=== PATIENT | male | born 1955 ===

== ENCOUNTER 2016-03-10 11:15 | Inpatient (IN) | payer BC ==
[2016-03-10] MEDS ORDERED: SODIUM CHLORIDE 1,000 ML IV STA (12:56)
[2016-03-10 13:11] LABS: BASOPHIL 0.4 % (0-2.0); EOSINOPHIL 0.1 % (0-4.5); MEAN CELL VOLUME 90.9 fl (80-96); MEAN PLT VOLUME 8.9 fl (7.5-11.1); NEUTROPHILS 77.8 % (42.8-82.8); PLATELET COUNT 144 K/MM3 (134-434); RDW 13.8 % (11.9-15.9); WHITE BLOOD COUNT 13.4 K/mm3 (4.0-10.0)
[2016-03-10 13:24] LABS: INR 1.21 (0.82-1.09); PROTHROMBIN TIME (PATIENT) 13.4 SEC (9.98-11.88)
[2016-03-10 13:26] LABS: ACTIVATED PTT 31.3 SECONDS (26.9-34.4)
[2016-03-10 13:36] LABS: ALBUMIN 4.1 g/dl (3.4-5.0); ANION GAP 12 (8-16); BILIRUBIN,TOTAL 0.6 mg/dL (0.2-1.0); CALCIUM 9.2 mg/dL (8.5-10.1); CO2 23 mmol/L (21-32); CREATININE 1.2 mg/dL (0.7-1.3); GLUCOSE,RANDOM 235 mg/dL (74-106); SGOT/AST 12 U/L (15-37); SGPT/ALT 24 U/L (12-78); TOT PROT 7.8 g/dl (6.4-8.2)
[2016-03-10 13:39] LABS: ALK PHOS 54 U/L (45-117); TROPONIN I < 0.02 ng/ml (0.00-0.05)
--- NOTE | 2016-03-10 13:54 | PDOC ---
History of Present Illness - General Chief Complaint: Redness To Affected Area Stated Complaint: RT SIDE KNEE PAIN Time Seen by Provider: 03/10/16 12:19 History Source: Patient Exam Limitations: No Limitations - History of Present Illness Initial Comments: 03/10/16 13:31 60-year-old male presents to the ED with complaints of worsening right knee pain associated with redness and swelling and drainage since yesterday. 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 Patient states then area approximately one week later developed a scab but no redness discomfort or drainage. Patient states with time area became tender to touch only and 2 days ago had picked the scab off. patient states is also diabetic and states his last BGM was 145. Patient denies radiation of pain, fever, chills, previous injury to the affected area, or previous surgery to the affected area. Timing/Duration: constant, getting worse Severity: moderate Associated Symptoms: reports: denies symptoms Past History - Past Medical History Allergies/Adverse Reactions: Allergies Allergy/AdvReac Type Severity Reaction Status Date / Time No Known Allergies Allergy Verified 03/10/16 11:19 Home Medications: Ambulatory Orders Canagliflozin [Invokana] 100 mg PO DAILY 03/10/16 Lisinopril [Prinivil] 20 mg PO DAILY 03/10/16 Metoprolol Succinate [Toprol Xl] 100 mg PO DAILY 03/10/16 Ropinirole HCl 3 mg PO DAILY 03/10/16 Rosuvastatin Calcium [Crestor] 40 mg PO DAILY 03/10/16 Sitagliptin Phos/Metformin HCl [Janumet Xr 100-1,000 mg Tablet] 1 tab PO DAILY 03/10/16 Diabetes: Yes HTN: Yes Hypercholesterolemia: Yes - Surgical History Cardiac Surgery: Yes - Psycho/Social/Smoking Cessation Hx Suicidal Ideation: No Smoking History: Never smoked Have you smoked in the past 12 months: No Information on smoking cessation initiated: No Hx Alcohol Use: No Drug/Substance Use Hx: No Patient Lives Alone: No Lives with/in: spouse/SO Review of Systems - Review of Systems Able to Perform ROS?: Yes Constitutional: No: Symptoms Reported HEENTM: No: Symptoms Reported Respiratory: No: Symptoms reported Cardiac (ROS): No: Symptoms Reported ABD/GI: No: Symptoms Reported : No: Symptoms Reported Musculoskeletal: Yes: Joint Pain (right knee), Joint Swelling (right knee) Integumentary: Yes: Erythema (right knee) Neurological: No: Symptoms reported Endocrine: No: Symptoms Reported Hematologic/Lymphatic: No: Symptoms Reported *Physical Exam - Vital Signs Last Vital Signs Temp Pulse Resp BP Pulse Ox 98.1 F 98 H 19 124/68 99 03/10/16 11:19 03/10/16 11:19 03/10/16 11:19 03/10/16 11:19 03/10/16 11:19 - Physical Exam General Appearance: Yes: Nourished, Appropriately Dressed. No: Apparent Distress HEENT: negative: Pale Conjunctivae Neck: positive: Supple Respiratory/Chest: positive: Lungs Clear, Normal Breath Sounds. negative: Respiratory Distress, Accessory Muscle Use Cardiovascular: positive: Regular Rhythm, Regular Rate. negative: Murmur Gastrointestinal/Abdominal: positive: Soft. negative: Tenderness Extremity: positive: Normal Capillary Refill, Normal Range of Motion, Tender ( distal aspect of right patella. ) Integumentary: positive: Erythema (diffuse erythema with increased warmth over right patella. No palpable fluctulence but with moderate prsssure able to express nonodorous purulent drainage from pinhead sized opening over the right patella) Neurologic: positive: Motor Strength 5/5 (ambulatory) Heart Score/ECG Review - ECG Intrepretation Rhythm: Regular Rhythm (rate 90, no acute findings.) ED Treatment Course - LABORATORY CBC & Chemistry Diagram: 03/12/16 05:35 03/12/16 05:35 - ADDITIONAL ORDERS Additional order review: Laboratory Results 03/10/16 13:00 Sodium 138 Potassium 4.3 Chloride 103 Carbon Dioxide 23 Anion Gap 12 BUN 23 H Creatinine 1.2 Creat Clearance w eGFR > 60 Random Glucose 235 H Calcium 9.2 Total Bilirubin 0.6 AST 12 L ALT 24 Alkaline Phosphatase 54 Creatine Kinase 165 Troponin I < 0.02 Total Protein 7.8 Albumin 4.1 03/10/16 13:00 RBC 5.61 H MCV 90.9 MCHC 33.0 RDW 13.8 MPV 8.9 Neutrophils % 77.8 Lymphocytes % 10.7 Monocytes % 11.0 H Eosinophils % 0.1 Basophils % 0.4 - RADIOLOGY Radiology Studies Ordered: Category Date Time Status LOWER EXTREMITY CT W/O CONTR [CT] Stat CT Scan 03/10/16 12:58 Ordered Medical Decision Making - Medical Decision Making 03/10/16 13:57 Patient history of diabetes presents with worsening redness swelling and drainage from the right knee patient denies history of arthritis and states has not seen his PCP for the above. Patient concerning for septic joint versus cellulitis versus sepsis. Septic workup initiated including a CT of the extremity and will culture was obtained. Will vancomycin and Zosyn. Erythematous area outline with permanent marker pen. 03/10/16 14:30 Laboratory Tests 03/10/16 03/10/16 03/10/16 13:00 13:00 13:00 WBC 13.4 H Hgb 16.8 Hct 51.0 H Neutrophils % 77.8 INR 1.21 H PTT (Actin FS) 31.3 Sodium 138 Potassium 4.3 Chloride 103 Carbon Dioxide 23 Anion Gap 12 BUN 23 H Creatinine 1.2 Creat Clearance w eGFR > 60 Random Glucose 235 H Lactic Acid AST 12 L ALT 24 Troponin I < 0.02 Blood Type Antibody Screen 03/10/16 03/10/16 13:00 13:00 WBC Hgb Hct Neutrophils % INR PTT (Actin FS) Sodium Potassium Chloride Carbon Dioxide Anion Gap BUN Creatinine Creat Clearance w eGFR Random Glucose Lactic Acid 2.072 H* AST ALT Troponin I Blood Type A NEGATIVE Antibody Screen Negative Discussed with hospitalist and accepted to [facility]. Will consult ortho once CT results are reviewed. 03/10/16 14:58 CT shows significant soft tissue swelling around the knee joint and edema and fluid mainly in the prepatellar region measuring 2 cm in thickness. Superimposed infection cannot be excluded or evaluated on this exam. There is no gross joint effusion fracture, bone destruction or periosteal elevation identified. Consultation placed to orthopedist continuous still operator Dr. De Los Santos. *DC/Admit/Observation/Transfer Diagnosis at time of Disposition: Cellulitis of knee, right Sepsis Qualifiers: Sepsis type: sepsis due to unspecified organism Qualified Code(s): A41.9 - Sepsis, unspecified organism - Discharge Dispostion Admit: Yes
[2016-03-10] MEDS ORDERED: PIPERACILLIN/TAZOB 3.375 GM/50 ML PRE-DOCKED IV ONE (13:59)
[2016-03-10] MEDS ORDERED: VANCOMYCIN 1,000 MG in DEXTROSE 5%-WATER - 250 ML IVPB ONE (13:59)
[2016-03-10] MEDS ORDERED: PIPERACILLIN/TAZOB 3.375 GM 50 ML IVPB ONE (14:15)
[2016-03-10] MEDS ORDERED: VANCOMYCIN 1 GRAM (PRE-DOCKED) 250 ML IVPB ONE (14:35)
[2016-03-10] MEDS ORDERED: oxyCODONE HCL 5 MG TABLET PO PRN (14:43)
[2016-03-10] MEDS ORDERED: ACETAMINOPHEN 325 MG TABLET (FP) PO PRN (14:43)
[2016-03-10] MEDS ORDERED: ONDANSETRON 4 MG/2 ML VIAL IVPB PRN (14:43)
--- NOTE | 2016-03-10 14:45 | HP ---
CHIEF COMPLAINT: Knee pain PCP: Dr. Beatrice Valera HISTORY OF PRESENT ILLNESS: this is a 60 year old male with a history of NIDDM, HTN, and restless leg syndrome who presents complaining of right knee pain, redness, warmth, and swelling since last night. He had a scab in that location for about two months, and symptoms started after he picked the scab off yesterday. He denies fevers/chills or any other systemic symptoms. 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 Smoking: None Alcohol: Occasional Drugs: None Family History: Non-contributory to this admission Allergies No Known Allergies Allergy (Verified 03/10/16 11:19) HOME MEDICATIONS: Medication Instructions Recorded Canagliflozin [Invokana] 100 mg PO DAILY 03/10/16 Lisinopril [Prinivil] 20 mg PO DAILY 03/10/16 Metoprolol Succinate [Toprol Xl] 100 mg PO DAILY 03/10/16 Ropinirole HCl 3 mg PO DAILY 03/10/16 Rosuvastatin Calcium [Crestor] 40 mg PO DAILY 03/10/16 Sitagliptin Phos/Metformin HCl 1 tab PO DAILY 03/10/16 [Janumet Xr 100-1,000 mg Tablet] REVIEW OF SYSTEMS CONSTITUTIONAL: Absent: fever, chills, diaphoresis, generalized weakness, malaise, loss of appetite, weight change HEENT: Absent: rhinorrhea, nasal congestion, throat pain, throat swelling, difficulty swallowing, mouth swelling, ear pain, eye pain, visual changes CARDIOVASCULAR: Absent: chest pain, syncope, palpitations, irregular heart rate, lightheadedness , peripheral edema RESPIRATORY: Absent: cough, shortness of breath, dyspnea with exertion, orthopnea, wheezing, stridor, hemoptysis GASTROINTESTINAL: Absent: abdominal pain, abdominal distension, nausea, vomiting, diarrhea, constipation, melena, hematochezia GENITOURINARY: Absent: dysuria, frequency, urgency, hesitancy, hematuria, flank pain, genital pain MUSCULOSKELETAL: Right knee pain SKIN: Right knee redness, pain, warmth, drainage HEMATOLOGIC/IMMUNOLOGIC: Absent: easy bleeding, easy bruising, lymphadenopathy, frequent infections ENDOCRINE: Absent: unexplained weight gain, unexplained weight loss, heat intolerance, cold intolerance NEUROLOGIC: Absent: headache, focal weakness or paresthesias, dizziness, unsteady gait, seizure, mental status changes, bladder or bowel incontinence PSYCHIATRIC: Absent: anxiety, depression, suicidal or homicidal ideation, hallucinations. PHYSICAL EXAMINATION Vital Signs - 24 hr 03/10/16 11:19 Temperature 98.1 F Pulse Rate 98 H Respiratory 19 Rate Blood Pressure 124/68 O2 Sat by Pulse 99 Oximetry (%) GENERAL: Awake, alert, and fully oriented, in no acute distress. HEAD: Normal with no signs of trauma. EYES: Pupils equal, round and reactive to light, extraocular movements intact, sclera anicteric, conjunctiva clear. No lid lag. EARS, NOSE, THROAT: Ears normal, nares patent, oropharynx clear without exudates. Moist mucous membranes. NECK: Normal range of motion, supple without lymphadenopathy, JVD, or masses. LUNGS: Breath sounds equal, clear to auscultation bilaterally. No wheezes, and no crackles. No accessory muscle use. HEART: Regular rate and rhythm, normal S1 and S2 without murmur, rub or gallop. ABDOMEN: Soft, nontender, not distended, normoactive bowel sounds, no guarding, no rebound, no masses. No hepatomegaly or splenomegaly. MUSCULOSKELETAL: Normal range of motion at all joints. No bony deformities or tenderness. No CVA tenderness. UPPER EXTREMITIES: 2+ pulses, warm, well-perfused. No cyanosis. No clubbing. Cap refill <2 seconds. No peripheral edema. LOWER EXTREMITIES: 2+ pulses, warm, well-perfused. No calf tenderness. No peripheral edema. Right knee erythematous, edematous, <1cm open ulceration draining pus. Full range of motion of knee joint. NEUROLOGICAL: Cranial nerves II-XII intact. Normal speech. PSYCHIATRIC: Cooperative. Good eye contact. Appropriate mood and affect. SKIN: Warm, dry, normal turgor, no rashes or lesions noted. Laboratory Results - last 24 hr 03/10/16 03/10/16 03/10/16 13:00 13:00 13:00 WBC 13.4 H RBC 5.61 H Hgb 16.8 Hct 51.0 H MCV 90.9 MCHC 33.0 RDW 13.8 Plt Count 144 MPV 8.9 Neutrophils % 77.8 Lymphocytes % 10.7 Monocytes % 11.0 H Eosinophils % 0.1 Basophils % 0.4 INR 1.21 H PTT (Actin FS) 31.3 Sodium 138 Potassium 4.3 Chloride 103 Carbon Dioxide 23 Anion Gap 12 BUN 23 H Creatinine 1.2 Creat Clearance w eGFR > 60 Random Glucose 235 H Lactic Acid Calcium 9.2 Total Bilirubin 0.6 AST 12 L ALT 24 Alkaline Phosphatase 54 Creatine Kinase 165 Creatine Kinase Index 1.2 CK-MB (CK-2) 2.083 Troponin I < 0.02 Total Protein 7.8 Albumin 4.1 Blood Type Antibody Screen 03/10/16 03/10/16 13:00 13:00 WBC RBC Hgb Hct MCV MCHC RDW Plt Count MPV Neutrophils % Lymphocytes % Monocytes % Eosinophils % Basophils % INR PTT (Actin FS) Sodium Potassium Chloride Carbon Dioxide Anion Gap BUN Creatinine Creat Clearance w eGFR Random Glucose Lactic Acid 2.072 H* Calcium Total Bilirubin AST ALT Alkaline Phosphatase Creatine Kinase Creatine Kinase Index CK-MB (CK-2) Troponin I Total Protein Albumin Blood Type A NEGATIVE Antibody Screen Negative ASSESSMENT/PLAN: 60 year old diabetic male with cellulitis of the knee and sepsis. Problem List - Problem (1) Cellulitis of knee, right Assessment/Plan: -Send ESR/CRP -Vancomycin 1.25g bid/Zosyn 3.75g q8h; ID consulted for approval -Oxycodone/Tylenol as needed for pain -Orthopedic consultation for r/o septic arthritis Code(s): L03.115 - CELLULITIS OF RIGHT LOWER LIMB (2) Sepsis Assessment/Plan: -Antibiotics as above -IV fluids -Follow fever, WBC curve -Follow up blood cultures, wound culture Code(s): A41.9 - SEPSIS, UNSPECIFIED ORGANISM Qualifiers: Sepsis type: sepsis due to unspecified organism Qualified Code(s): A41.9 - Sepsis, unspecified organism (3) Diabetes Assessment/Plan: -Hold oral hypoglycemics while inpatient -ISS -FSACHS -Diabetic diet Code(s): E11.9 - TYPE 2 DIABETES MELLITUS WITHOUT COMPLICATIONS (4) Hypertension Assessment/Plan: -At goal -Continue home Metoprolol/Lisinopril Code(s): I10 - ESSENTIAL (PRIMARY) HYPERTENSION (5) Restless leg Assessment/Plan: -Continue home Ropipranole Code(s): G25.81 - RESTLESS LEGS SYNDROME (6) DVT prophylaxis Assessment/Plan: -Lovenox 40mg sq daily -PT Code(s): [id number] - Visit type - Emergency Visit Emergency Visit: Yes ED Registration Date: 03/10/16 Care time: The patient presented to the Emergency Department on the above date and was hospitalized for further evaluation of their emergent condition. - New Patient This patient is new to me today: Yes Date on this admission: 03/10/16 - Critical Care Critical Care patient: No
[2016-03-10 14:59] LABS: URINE APPEARANCE CLEAR; URINE BILIRUBIN NEGATIVE (NEGATIVE); URINE BLOOD NEGATIVE (NEGATIVE); URINE COLOR STRAW; URINE GLUCOSE (UA) 3+ (NEGATIVE); URINE KETONE NEGATIVE (NEGATIVE); URINE LEUK ESTERASE NEGATIVE (NEGATIVE); URINE NITRITE NEGATIVE (NEGATIVE); URINE PROTEIN NEGATIVE (NEGATIVE); URINE UROBILINOGEN NEGATIVE E.U./dl (0.2-1.0)
[2016-03-10 16:03] LABS: VENOUS PH 7.4 (7.31-7.41)
[2016-03-10 16:04] LABS: VENOUS BLOOD GAS HCO3 20.8 meq/L (22-29)
[2016-03-10] MEDS ORDERED: HEMOQUE TEST 1 EACH EACH ONE (16:54)
[2016-03-10] MEDS: INSULIN SLIDING SCALE (NOVOLOG) 1 VIAL SQ SCH ×2 (17:00→21:09)
[2016-03-10 20:05] VITALS: BMI 30.7
[2016-03-10] MEDS ORDERED: PNEUMOC 13-VAL CONJ-DIP CRM/PF 0.5 ML DISP.SYRIN IM ONE (20:06)
[2016-03-10] MEDS ORDERED: INSULIN (NOVOLOG) ASPART 100 UNITS/ML 10ML VIAL ONE (20:21)
[2016-03-10] MEDS: PIPERACILLIN/TAZOB 3.375 GM/50 ML PRE-DOCKED IVPB SCH (20:38)
[2016-03-10] MEDS ORDERED: PNEUMOCOCCAL 23 VACCINE 0.5 ML VIAL IM ONE (20:45)
[2016-03-10] MEDS: DOCUSATE SODIUM 100 MG CAPSULE (FP) PO SCH (21:09)
[2016-03-10] MEDS: rOPINIRole HCL 3 MG TABLET PO SCH (21:38)
[2016-03-10] MEDS ORDERED: VANCOMYCIN 1,250 MG in DEXTROSE 5%-WATER - 250 ML IVPB SCH (22:00)
--- NOTE | 2016-03-10 23:55 | EKG ---
Test Reason : Blood Pressure : / mmHG Vent. Rate : 090 BPM Atrial Rate : 090 BPM P-R Int : 188 ms QRS Dur : 096 ms QT Int : 362 ms P-R-T Axes : 046 -05 036 degrees QTc Int : 442 ms NORMAL SINUS RHYTHM POSSIBLE LATERAL INFARCT , AGE UNDETERMINED INFERIOR INFARCT , AGE UNDETERMINED ABNORMAL ECG NO PREVIOUS ECGS AVAILABLE Confirmed by SUSANA ROMERO MD ([id number]) on 03/10/2016 11:54:58 PM Referred By: Confirmed By:SUSANA ROMERO MD
[2016-03-11] MEDS: PIPERACILLIN/TAZOB 3.375 GM/50 ML PRE-DOCKED IVPB SCH (01:16)
[2016-03-11] MEDS ORDERED: VANCOMYCIN 1,250 MG in DEXTROSE 5%-WATER - 250 ML IVPB ONE (02:00)
[2016-03-11] MEDS: DOCUSATE SODIUM 100 MG CAPSULE (FP) PO SCH ×3 (05:18→21:19)
[2016-03-11] MEDS: INSULIN SLIDING SCALE (NOVOLOG) 1 VIAL SQ SCH ×4 (06:00→21:20)
[2016-03-11 08:06] LABS: BASOPHIL 0.2 % (0-2.0); EOSINOPHIL 0.4 % (0-4.5); MCH 30.2 pg (25.7-33.7); MCHC 33.1 g/dl (32.0-35.9); MEAN CELL VOLUME 91.2 fl (80-96); NEUTROPHILS 73.6 % (42.8-82.8); PLATELET COUNT 129 K/MM3 (134-434); RDW 13.9 % (11.9-15.9); WHITE BLOOD COUNT 11.2 K/mm3 (4.0-10.0)
--- NOTE | 2016-03-11 08:25 | CONSULT ---
Consult Reason for Consultation:: Right knee cellulitis r/o septic joint - History of Present Illness Chief Complaint: 60y/o male c/o pain and swelling of the right knee for approxamently 2 days. History of Present Illness: 60y/o male c/o right knee pain and swelling for approximately 2 days. He had a scab on the knee which had been there for many weeks and he peeled it off 2 days ago. He began to have a rapid increase in pain and swelling and went to the ER and was admitted for cellulitis. He has been on IV ABX. The knee is feeling much better today. He is able to walk on the knee with minimal discomfort. No other associated, aggravating or relieving factors. - History Source History Provided By: Patient, Family Member, Medical Record Limitations to Obtaining History: No Limitations - Alcohol/Substance Use Hx Alcohol Use: Yes (occasions) - Smoking History Smoking history: Never smoked Have you smoked in the past 12 months: No Home Medications - Allergies Allergies/Adverse Reactions: Allergies Allergy/AdvReac Type Severity Reaction Status Date / Time No Known Allergies Allergy Verified 03/10/16 11:19 - Home Medications Home Medications: Ambulatory Orders Canagliflozin [Invokana] 100 mg PO DAILY 03/10/16 Lisinopril [Prinivil] 20 mg PO DAILY 03/10/16 Metoprolol Succinate [Toprol Xl] 100 mg PO DAILY 03/10/16 Ropinirole HCl 3 mg PO DAILY 03/10/16 Rosuvastatin Calcium [Crestor] 40 mg PO DAILY 03/10/16 Sitagliptin Phos/Metformin HCl [Janumet Xr 100-1,000 mg Tablet] 1 tab PO DAILY 03/10/16 Review of Systems - Review of Systems Constitutional: reports: No Symptoms Eyes: reports: No Symptoms HENT: reports: No Symptoms, Throat Pain Cardiovascular: reports: No Symptoms Respiratory: reports: No Symptoms Gastrointestinal: reports: No Symptoms Genitourinary: reports: No Symptoms Breasts: reports: No Symptoms Reported Musculoskeletal: reports: No Symptoms Integumentary: reports: Wound Neurological: reports: No Symptoms Endocrine: reports: No Symptoms Hematology/Lymphatic: reports: No Symptoms Psychiatric: reports: No Symptoms Physical Exam Vital Signs: Vital Signs Temperature 98.5 F 03/11/16 05:44 Pulse Rate 98 H 03/11/16 05:44 Respiratory Rate 18 03/11/16 05:44 Blood Pressure 123/75 03/11/16 05:44 O2 Sat by Pulse Oximetry (%) 95 03/10/16 18:01 Constitutional: Yes: Well Nourished, No Distress, Calm HENT: Yes: Atraumatic, Normocephalic Musculoskeletal: Yes: Other (Right knee: There is a 1.5x 1.5cm superfical abrasive wound on the anterior aspect of the patella. There is mild serous drainage from this wound. There is mild surrounding erythema which seems to be receding from the skin marker line. Mild tenderness anteriorly in this area. No other areas of tenderness. No tenderness over the joint space. ROM 0-120 degrees without pain. Calf soft, NT, neg faith's sing. NVID.) Labs: CBC, BMP 03/11/16 06:05 Assessment/Plan #1 right knee cellulitis without joint involvement -Continue ABX tx -Pain control -Please reconsult if needed.
[2016-03-11 08:27] LABS: ANION GAP 6 (8-16); BILIRUBIN,TOTAL 0.9 mg/dL (0.2-1.0); CO2 24 mmol/L (21-32); CREATININE 0.9 mg/dL (0.7-1.3); GLUCOSE,RANDOM 133 mg/dL (74-106); SGOT/AST 12 U/L (15-37); SGPT/ALT 20 U/L (12-78); TOT PROT 7.4 g/dl (6.4-8.2)
[2016-03-11 08:28] LABS: ALK PHOS 48 U/L (45-117)
[2016-03-11] MEDS: ENOXAPARIN NA (PORCINE) 40 MG/0.4 ML DISP.SYRIN SQ SCH (10:26)
[2016-03-11] MEDS: METOPROLOL SUCCINATE 100 MG TAB.SR.24H (FP) PO SCH (10:27)
[2016-03-11] MEDS: LISINOPRIL 20 MG TABLET (FP) PO SCH (10:27)
[2016-03-11] MEDS ORDERED: INSULIN (NOVOLOG) ASPART 100 UNITS/ML 10ML VIAL ONE (12:54)
[2016-03-11] MEDS: PIPERACILLIN/TAZOB 3.375 GM 50 ML IVPB SCH ×2 (13:00→17:52)
--- NOTE | 2016-03-11 15:02 | CONSULT ---
Consult Consult Specialty:: infectious diseases Reason for Consultation:: infected swollen knee - History of Present Illness Chief Complaint: pain and swelling of the right knee History of Present Illness: 60 year old male with a history of NIDDM, HTN, and restless leg syndrome who presents complaining of right knee pain, redness, warmth, and swelling since last night. He had a scab in that location for about two months, and symptoms started after he picked the scab off yesterday. 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 patient then continues his work and as above the events happened and patient came to the hospital with swollen knee joint with pus draining from the center of the knee joint with swelling and inflammtion in the joint. The marking which was done yesterday has now increased and cellulitis has progressed past the marking. also the knee is very warm to touch patient is a diabetic patient got the ct scan and also was evaluated by the ortho currently patient is stable with pain and swelling around the joint denies any fever - History Source History Provided By: Family Member Limitations to Obtaining History: Language Barrier - Alcohol/Substance Use Hx Alcohol Use: Yes (occasions) - Smoking History Smoking history: Never smoked Have you smoked in the past 12 months: No Home Medications - Allergies Allergies/Adverse Reactions: Allergies Allergy/AdvReac Type Severity Reaction Status Date / Time No Known Allergies Allergy Verified 03/10/16 11:19 - Home Medications Home Medications: Ambulatory Orders Canagliflozin [Invokana] 100 mg PO DAILY 03/10/16 Lisinopril [Prinivil] 20 mg PO DAILY 03/10/16 Metoprolol Succinate [Toprol Xl] 100 mg PO DAILY 03/10/16 RX: Ropinirole HCl 3 mg PO DAILY 03/10/16 Rosuvastatin Calcium [Crestor] 40 mg PO DAILY 03/10/16 Sitagliptin Phos/Metformin HCl [Janumet Xr 100-1,000 mg Tablet] 1 tab PO DAILY 03/10/16 Review of Systems - Review of Systems Constitutional: reports: No Symptoms Eyes: reports: No Symptoms HENT: reports: No Symptoms Neck: reports: No Symptoms Cardiovascular: reports: No Symptoms Respiratory: reports: No Symptoms Gastrointestinal: reports: No Symptoms Genitourinary: reports: No Symptoms Musculoskeletal: reports: Joint Pain, Joint Swelling, Other Integumentary: reports: Erythema, Wound, Other Neurological: reports: No Symptoms Endocrine: reports: No Symptoms Hematology/Lymphatic: reports: No Symptoms Psychiatric: reports: No Symptoms Physical Exam Vital Signs: Vital Signs Temperature 97.9 F 03/11/16 13:53 Pulse Rate 69 03/11/16 13:53 Respiratory Rate 20 03/11/16 13:53 Blood Pressure 123/75 03/11/16 05:44 O2 Sat by Pulse Oximetry (%) 99 03/11/16 09:00 Constitutional: Yes: Well Nourished, Calm, Mild Distress Eyes: Yes: Conjunctiva Clear HENT: Yes: Atraumatic, Normocephalic Neck: Yes: Supple, Trachea Midline Cardiovascular: Yes: Regular Rate and Rhythm Respiratory: Yes: Regular, CTA Bilaterally Gastrointestinal: Yes: Normal Bowel Sounds, Soft Musculoskeletal: Yes: Joint Swelling, Other Extremities: Yes: Other Integumentary: Yes: Erythema Wound/Incision: Yes: Dressing Removed, Other (drainage pus present from the knee joint rt side) Neurological: Yes: Alert, Oriented Psychiatric: Yes: Alert Labs: CBC, BMP 03/11/16 06:05 03/11/16 06:05 Imaging - Results Chest X-ray: Report Reviewed, Image Reviewed Cat Scan: Report Reviewed, Image Reviewed Assessment/Plan Problem List - Problem (1) Cellulitis of knee, right Code(s): L03.115 - CELLULITIS OF RIGHT LOWER LIMB (2) Sepsis Code(s): A41.9 - SEPSIS, UNSPECIFIED ORGANISM Qualifiers: Sepsis type: sepsis due to unspecified organism Qualified Code(s): A41.9 - Sepsis, unspecified organism (3) Diabetes Code(s): E11.9 - TYPE 2 DIABETES MELLITUS WITHOUT COMPLICATIONS (4) Hypertension Code(s): I10 - ESSENTIAL (PRIMARY) HYPERTENSION (5) Restless leg Code(s): G25.81 - RESTLESS LEGS SYNDROME abscess of the knee rt plan await for the culture cristine and sancho
--- NOTE | 2016-03-11 17:26 | PN ---
Teaching Attending Note Name of Resident: Iván Kelly ATTENDING PHYSICIAN STATEMENT I saw and evaluated the patient. I reviewed the resident's note and discussed the case with the resident. I agree with the resident's findings and plan as documented. SUBJECTIVE: Patient's knee is increasing the swelling, no shortness of breath, no nausea or vomiting. OBJECTIVE: Vital Signs Temperature 97.9 F 03/11/16 17:17 Pulse Rate 91 H 03/11/16 17:17 Respiratory Rate 18 03/11/16 17:17 Blood Pressure 135/75 03/11/16 17:17 O2 Sat by Pulse Oximetry (%) 99 03/11/16 09:00 GENERAL: The patient is awake, alert, and fully oriented, in no acute distress. HEAD: Normal with no signs of trauma. EYES: PERRL, extraocular movements intact, sclera anicteric, conjunctiva clear. No ptosis. ENT: Ears normal, nares patent, oropharynx clear without exudates, moist mucous membranes. NECK: Trachea midline, full range of motion, supple. LUNGS: Breath sounds equal, clear to auscultation bilaterally, no wheezes, no crackles, no accessory muscle use. HEART: Regular rate and rhythm, S1, S2 without murmur, rub or gallop. ABDOMEN: Soft, nontender, nondistended, normoactive bowel sounds, no guarding, no hepatosplenomegaly, no masses. EXTREMITIES: 2+ pulses, warm, well-perfused, no edema, Right knee pain with knee redness and increased swelling , pain, warmth, drainage NEUROLOGICAL: Cranial nerves II through XII grossly intact. Normal speech, gait not observed. PSYCH: Normal mood, normal affect. SKIN: Warm, dry, normal turgor, no rashes or lesions noted CBCD WBC 11.2 K/mm3 (4.0-10.0) H 03/11/16 06:05 RBC 5.23 M/mm3 (4.00-5.60) 03/11/16 06:05 Hgb 15.8 GM/dL (11.7-16.9) 03/11/16 06:05 Hct 47.7 % (35.4-49) 03/11/16 06:05 MCV 91.2 fl (80-96) 03/11/16 06:05 MCHC 33.1 g/dl (32.0-35.9) 03/11/16 06:05 RDW 13.9 % (11.9-15.9) 03/11/16 06:05 Plt Count 129 K/MM3 (134-434) L 03/11/16 06:05 MPV 9.0 fl (7.5-11.1) 03/11/16 06:05 CMP Sodium 134 mmol/L (136-145) L 03/11/16 06:05 Potassium 4.1 mmol/L (3.5-5.1) 03/11/16 06:05 Chloride 104 mmol/L (98-107) 03/11/16 06:05 Carbon Dioxide 24 mmol/L (21-32) 03/11/16 06:05 Anion Gap 6 (8-16) L 03/11/16 06:05 BUN 16 mg/dL (7-18) D 03/11/16 06:05 Creatinine 0.9 mg/dL (0.7-1.3) D 03/11/16 06:05 Creat Clearance w eGFR > 60 (>60) 03/11/16 06:05 Random Glucose 133 mg/dL (74-106) H D 03/11/16 06:05 Calcium 9.0 mg/dL (8.5-10.1) 03/11/16 06:05 Total Bilirubin 0.9 mg/dL (0.2-1.0) D 03/11/16 06:05 AST 12 U/L (15-37) L 03/11/16 06:05 ALT 20 U/L (12-78) 03/11/16 06:05 Alkaline Phosphatase 48 U/L (45-117) 03/11/16 06:05 Total Protein 7.4 g/dl (6.4-8.2) 03/11/16 06:05 Albumin 4.0 g/dl (3.4-5.0) 03/11/16 06:05 CARDIAC ENZYMES Creatine Kinase 165 IU/L (39-308) 03/10/16 13:00 Troponin I < 0.02 ng/ml (0.00-0.05) 03/10/16 13:00 Current Medications Generic Name Dose Route Start Last Admin Trade Name Freq PRN Reason Stop Dose Admin Acetaminophen 650 mg 03/10/16 14:43 Tylenol - PO Q4H PRN FEVER OR PAIN Docusate Sodium 100 mg 03/10/16 22:00 03/11/16 13:39 Colace - PO 100 mg TID JOEL Administration Enoxaparin Sodium 40 mg 03/11/16 10:00 03/11/16 10:26 Lovenox - SQ 40 mg DAILY JOEL Administration Piperacillin Sod/Tazobactam Sod 50 mls @ 100 mls/hr 03/11/16 12:30 03/11/16 13: 00 Zosyn 3.375gm Ivpb (Pre-Docked) IVPB 100 mls/hr Q8H-IV JOEL Administration Vancomycin HCl 250 mls @ 150 mls/hr 03/12/16 02:00 Vancomycin (Pre-Docked) IVPB DAILY@0200 [facility] Insulin Aspart 1 vial 03/10/16 16:30 03/11/16 13:00 Novolog Vial Sliding Scale - SQ 2 units ACHS JOEL Administration Protocol Lisinopril 20 mg 03/11/16 10:00 03/11/16 10:27 Prinivil PO 20 mg DAILY JOEL Administration Metoprolol Succinate 100 mg 03/11/16 10:00 03/11/16 10:27 Toprol Xl - PO 100 mg DAILY JOEL Administration Ondansetron HCl 4 mg 03/10/16 14:43 Zofran Injection IVPB Q6H PRN NAUSEA Oxycodone HCl 5 mg 03/10/16 14:43 Roxicodone - PO Q6H PRN PAIN Ropinirole HCl 3 mg 03/10/16 22:00 03/10/16 21:38 Requip - PO 3 mg HS JOEL Administration Rosuvastatin Calcium 40 mg 03/11/16 22:00 Crestor - PO HS [facility] Medication Instructions Recorded Canagliflozin [Invokana] 100 mg PO DAILY 03/10/16 Lisinopril [Prinivil] 20 mg PO DAILY 03/10/16 Metoprolol Succinate [Toprol Xl] 100 mg PO DAILY 03/10/16 Ropinirole HCl 3 mg PO DAILY 03/10/16 Rosuvastatin Calcium [Crestor] 40 mg PO DAILY 03/10/16 Sitagliptin Phos/Metformin HCl 1 tab PO DAILY 03/10/16 [Janumet Xr 100-1,000 mg Tablet] ASSESSMENT AND PLAN: This is a 60 year old male with a history of NIDDM, HTN, and restless leg syndrome who presents complaining of right knee pain, redness, warmth, and swelling since last night #Acute right knee Cellulitis with increased erthyma :ID; is on the case started on vanco and zosyn follow wound culture and sensitivity,limb elevation ; ortho consult ' s group appreciated #Diabetes: on sliding scale with coverage , diabetic diet #Hypertension :Continue home Metoprolol/Lisinopril # Restless leg Syndrome :Continue home Ropipranole DVT prophylaxis: Lovenox 40mg sq daily
--- NOTE | 2016-03-11 17:32 | PN ---
Physical Exam: SUBJECTIVE: Patient seen and examined, this is a 60 year old male with a history of NIDDM, HTN, and restless leg syndrome who presents complaining of right knee pain, redness, warmth, and swelling since last night. He had a scab in that location for about two months, and symptoms started after he picked the scab off yesterday. He denies fevers/chills or any other systemic symptoms. OBJECTIVE: Vital Signs Period Temp Pulse Resp BP Sys/Wagner Pulse Ox Last 24 Hr 97.8 F-98.6 F 69-104 18-20 123-150/75-88 95-99 GENERAL: The patient is awake, alert, and fully oriented, in no acute distress. HEAD: Normal with no signs of trauma. EYES: PERRL, extraocular movements intact, sclera anicteric, conjunctiva clear. No ptosis. ENT: Ears normal, nares patent, oropharynx clear without exudates, moist mucous membranes. NECK: Trachea midline, full range of motion, supple. LUNGS: Breath sounds equal, clear to auscultation bilaterally, no wheezes, no crackles, no accessory muscle use. HEART: Regular rate and rhythm, S1, S2 without murmur, rub or gallop. ABDOMEN: Soft, nontender, nondistended, normoactive bowel sounds, no guarding, no rebound, no hepatosplenomegaly, no masses. EXTREMITIES: 2+ pulses, warm, well-perfused, no edema, Right knee pain, Right knee redness, pain, warmth, drainage NEUROLOGICAL: Cranial nerves II through XII grossly intact. Normal speech, gait not observed. PSYCH: Normal mood, normal affect. SKIN: Warm, dry, normal turgor, no rashes or lesions noted Laboratory Results - last 24 hr 03/10/16 03/10/16 03/11/16 16:58 21:07 05:17 WBC RBC Hgb Hct MCV MCHC RDW Plt Count MPV Neutrophils % Lymphocytes % Monocytes % Eosinophils % Basophils % Sodium Potassium Chloride Carbon Dioxide Anion Gap BUN Creatinine Creat Clearance w eGFR POC Glucometer 148.18911 174 134 Random Glucose Calcium Total Bilirubin AST ALT Alkaline Phosphatase Total Protein Albumin 03/11/16 03/11/16 03/11/16 06:05 06:05 12:27 WBC 11.2 H RBC 5.23 Hgb 15.8 Hct 47.7 MCV 91.2 MCHC 33.1 RDW 13.9 Plt Count 129 L MPV 9.0 Neutrophils % 73.6 Lymphocytes % 14.9 D Monocytes % 10.9 H Eosinophils % 0.4 D Basophils % 0.2 Sodium 134 L Potassium 4.1 Chloride 104 Carbon Dioxide 24 Anion Gap 6 L BUN 16 D Creatinine 0.9 D Creat Clearance w eGFR > 60 POC Glucometer 192 Random Glucose 133 H D Calcium 9.0 Total Bilirubin 0.9 D AST 12 L ALT 20 Alkaline Phosphatase 48 Total Protein 7.4 Albumin 4.0 03/11/16 16:40 WBC RBC Hgb Hct MCV MCHC RDW Plt Count MPV Neutrophils % Lymphocytes % Monocytes % Eosinophils % Basophils % Sodium Potassium Chloride Carbon Dioxide Anion Gap BUN Creatinine Creat Clearance w eGFR POC Glucometer 135 Random Glucose Calcium Total Bilirubin AST ALT Alkaline Phosphatase Total Protein Albumin Active Medications Generic Name Dose Route Start Last Admin Trade Name Freq PRN Reason Stop Dose Admin Acetaminophen 650 mg 03/10/16 14:43 Tylenol - PO Q4H PRN FEVER OR PAIN Docusate Sodium 100 mg 03/10/16 22:00 03/11/16 13:39 Colace - PO 100 mg TID JEOL Administration Enoxaparin Sodium 40 mg 03/11/16 10:00 03/11/16 10:26 Lovenox - SQ 40 mg DAILY JOEL Administration Piperacillin Sod/Tazobactam Sod 50 mls @ 100 mls/hr 03/11/16 12:30 03/11/16 13: 00 Zosyn 3.375gm Ivpb (Pre-Docked) IVPB 100 mls/hr Q8H-IV JOEL Administration Vancomycin HCl 250 mls @ 150 mls/hr 03/12/16 02:00 Vancomycin (Pre-Docked) IVPB DAILY@0200 JOEL Insulin Aspart 1 vial 03/10/16 16:30 03/11/16 13:00 Novolog Vial Sliding Scale - SQ 2 units ACHS JOEL Administration Protocol Lisinopril 20 mg 03/11/16 10:00 03/11/16 10:27 Prinivil PO 20 mg DAILY JOEL Administration Metoprolol Succinate 100 mg 03/11/16 10:00 03/11/16 10:27 Toprol Xl - PO 100 mg DAILY JOEL Administration Ondansetron HCl 4 mg 03/10/16 14:43 Zofran Injection IVPB Q6H PRN NAUSEA Oxycodone HCl 5 mg 03/10/16 14:43 Roxicodone - PO Q6H PRN PAIN Ropinirole HCl 3 mg 03/10/16 22:00 03/10/16 21:38 Requip - PO 3 mg HS JOEL Administration Rosuvastatin Calcium 40 mg 03/11/16 22:00 Crestor - PO HS JOEL ASSESSMENT/PLAN: (1) Cellulitis of knee, right right knee, erthyma increased on vanco and zosyn follow wound culture follow wbc limb elevation ID and ortho consult appreciated 2 Diabetes on sliding scale follow bgm diabetic diet 3 Hypertension -At goal -Continue home Metoprolol/Lisinopril 4 Restless leg -Continue home Ropipranole 5 DVT prophylaxis -Lovenox 40mg sq daily -PT fluid ; orally allowed electrolyte ; follow in am nutrition: diabetic diet dispo: admit in med surg Visit type - Emergency Visit Emergency Visit: Yes ED Registration Date: 03/10/16 Care time: The patient presented to the Emergency Department on the above date and was hospitalized for further evaluation of their emergent condition. - New Patient This patient is new to me today: Yes Date on this admission: 03/11/16 - Critical Care Critical Care patient: No
[2016-03-11] MEDS ORDERED: PIPERACILLIN/TAZOB 3.375 GM 3.375 GM in DEXTROSE 5%-WATER - 50 ML IVPB SCH (18:00)
[2016-03-11] MEDS: ROSUVASTATIN CA 20 MG TABLET (FP) PO SCH (21:19)
[2016-03-11] MEDS: rOPINIRole HCL 3 MG TABLET PO SCH (21:21)
[2016-03-12] MEDS: VANCOMYCIN 1 GRAM (PRE-DOCKED) 250 ML IVPB SCH (01:21)
[2016-03-12] MEDS: PIPERACILLIN/TAZOB 3.375 GM 50 ML IVPB SCH ×3 (01:21→17:45)
[2016-03-12] MEDS: DOCUSATE SODIUM 100 MG CAPSULE (FP) PO SCH ×3 (05:55→21:36)
[2016-03-12] MEDS: INSULIN SLIDING SCALE (NOVOLOG) 1 VIAL SQ SCH ×4 (06:01→21:36)
[2016-03-12] MEDS ORDERED: INSULIN (NOVOLOG) ASPART 100 UNITS/ML 10ML VIAL ONE ×2 (06:14→17:36)
[2016-03-12 06:54] LABS: BASOPHIL 0.4 % (0-2.0); EOSINOPHIL 1.4 % (0-4.5); MCH 30.4 pg (25.7-33.7); MCHC 33.6 g/dl (32.0-35.9); MEAN CELL VOLUME 90.5 fl (80-96); MEAN PLT VOLUME 8.6 fl (7.5-11.1); NEUTROPHILS 69.5 % (42.8-82.8); PLATELET COUNT 118 K/MM3 (134-434); RDW 14.1 % (11.9-15.9); WHITE BLOOD COUNT 8.4 K/mm3 (4.0-10.0)
[2016-03-12 07:36] LABS: CALCIUM 8.7 mg/dL (8.5-10.1); CREATININE 0.9 mg/dL (0.7-1.3)
--- NOTE | 2016-03-12 08:54 | PN ---
Teaching Attending Note Name of Resident: Iván Kelly ATTENDING PHYSICIAN STATEMENT I saw and evaluated the patient. I reviewed the resident's note and discussed the case with the resident. I agree with the resident's findings and plan as documented. SUBJECTIVE: Patient is feeling better, swelling is less today , decreased swelling and the patient is able to bend his right lower extremity. OBJECTIVE: Vital Signs Temperature 98.6 F 03/12/16 06:00 Pulse Rate 84 03/12/16 06:00 Respiratory Rate 20 03/12/16 06:00 Blood Pressure 121/76 03/12/16 06:00 O2 Sat by Pulse Oximetry (%) 97 03/11/16 20:30 GENERAL: The patient is awake, alert, and fully oriented, in no acute distress. HEAD: Normal with no signs of trauma. EYES: PERRL, extraocular movements intact, sclera anicteric, conjunctiva clear. No ptosis. ENT: Ears normal, nares patent, oropharynx clear without exudates, moist mucous membranes. NECK: Trachea midline, full range of motion, supple. LUNGS: Breath sounds equal, clear to auscultation bilaterally, no wheezes, no crackles, no accessory muscle use. HEART: Regular rate and rhythm, S1, S2 without murmur, rub or gallop. ABDOMEN: Soft, nontender, nondistended, normoactive bowel sounds, no guarding, no hepatosplenomegaly, no masses. EXTREMITIES: 2+ pulses, warm, well-perfused, no edema, Right knee decreased in swelling and redness, decreased the warmth, and no drainage NEUROLOGICAL: Cranial nerves II through XII grossly intact. Normal speech, gait not observed. PSYCH: Normal mood, normal affect. SKIN: Warm, dry, normal turgor, no rashes or lesions noted ASSESSMENT AND PLAN: CBCD WBC 8.4 K/mm3 (4.0-10.0) 03/12/16 05:35 RBC 4.98 M/mm3 (4.00-5.60) 03/12/16 05:35 Hgb 15.2 GM/dL (11.7-16.9) 03/12/16 05:35 Hct 45.1 % (35.4-49) 03/12/16 05:35 MCV 90.5 fl (80-96) 03/12/16 05:35 MCHC 33.6 g/dl (32.0-35.9) 03/12/16 05:35 RDW 14.1 % (11.9-15.9) 03/12/16 05:35 Plt Count 118 K/MM3 (134-434) L 03/12/16 05:35 MPV 8.6 fl (7.5-11.1) 03/12/16 05:35 CMP Sodium 137 mmol/L (136-145) 03/12/16 05:35 Potassium 3.9 mmol/L (3.5-5.1) 03/12/16 05:35 Chloride 103 mmol/L (98-107) 03/12/16 05:35 Carbon Dioxide 25 mmol/L (21-32) 03/12/16 05:35 Anion Gap 9 (8-16) 03/12/16 05:35 BUN 18 mg/dL (7-18) 03/12/16 05:35 Creatinine 0.9 mg/dL (0.7-1.3) 03/12/16 05:35 Creat Clearance w eGFR > 60 (>60) 03/11/16 06:05 Random Glucose 130 mg/dL (74-106) H 03/12/16 05:35 Calcium 8.7 mg/dL (8.5-10.1) 03/12/16 05:35 Total Bilirubin 0.9 mg/dL (0.2-1.0) D 03/11/16 06:05 AST 12 U/L (15-37) L 03/11/16 06:05 ALT 20 U/L (12-78) 03/11/16 06:05 Alkaline Phosphatase 48 U/L (45-117) 03/11/16 06:05 Total Protein 7.4 g/dl (6.4-8.2) 03/11/16 06:05 Albumin 4.0 g/dl (3.4-5.0) 03/11/16 06:05 CARDIAC ENZYMES Creatine Kinase 165 IU/L (39-308) 03/10/16 13:00 Troponin I < 0.02 ng/ml (0.00-0.05) 03/10/16 13:00 Current Medications Generic Name Dose Route Start Last Admin Trade Name Freq PRN Reason Stop Dose Admin Acetaminophen 650 mg 03/10/16 14:43 Tylenol - PO Q4H PRN FEVER OR PAIN Docusate Sodium 100 mg 03/10/16 22:00 03/12/16 05:55 Colace - PO 100 mg TID JOEL Administration Enoxaparin Sodium 40 mg 03/11/16 10:00 03/11/16 10:26 Lovenox - SQ 40 mg DAILY JOEL Administration Piperacillin Sod/Tazobactam Sod 50 mls @ 100 mls/hr 03/11/16 12:30 03/12/16 01: 21 Zosyn 3.375gm Ivpb (Pre-Docked) IVPB 100 mls/hr Q8H-IV JOEL Administration Vancomycin HCl 250 mls @ 150 mls/hr 03/12/16 02:00 03/12/16 01:21 Vancomycin (Pre-Docked) IVPB 150 mls/hr DAILY@0200 JOEL Administration Insulin Aspart 1 vial 03/10/16 16:30 03/12/16 06:01 Novolog Vial Sliding Scale - SQ Not Given ACHS [facility] Protocol Lisinopril 20 mg 03/11/16 10:00 03/11/16 10:27 Prinivil PO 20 mg DAILY JOEL Administration Metoprolol Succinate 100 mg 03/11/16 10:00 03/11/16 10:27 Toprol Xl - PO 100 mg DAILY JOEL Administration Ondansetron HCl 4 mg 03/10/16 14:43 Zofran Injection IVPB Q6H PRN NAUSEA Oxycodone HCl 5 mg 03/10/16 14:43 Roxicodone - PO Q6H PRN PAIN Ropinirole HCl 3 mg 03/10/16 22:00 03/11/16 21:21 Requip - PO 3 mg HS JOEL Administration Rosuvastatin Calcium 40 mg 03/11/16 22:00 03/11/16 21:19 Crestor - PO 40 mg HS JOEL Administration Medication Instructions Recorded Canagliflozin [Invokana] 100 mg PO DAILY 03/10/16 Lisinopril [Prinivil] 20 mg PO DAILY 03/10/16 Metoprolol Succinate [Toprol Xl] 100 mg PO DAILY 03/10/16 Ropinirole HCl 3 mg PO DAILY 03/10/16 Rosuvastatin Calcium [Crestor] 40 mg PO DAILY 03/10/16 Sitagliptin Phos/Metformin HCl 1 tab PO DAILY 03/10/16 [Janumet Xr 100-1,000 mg Tablet] A/P: This is a 60 year old male with a history of NIDDM, HTN, and restless leg syndrome who presents complaining of right knee pain, redness, warmth, and swelling since last night. #Acute right knee Cellulitis with decreased erythyma , able to bend his knee now .ID; is on the case started on vancomycin and zosyn follow wound culture and sensitivity ; ortho consult 's group appreciated . Also ordered Duplex to r/o DVT #Diabetes: on sliding scale with coverage , diabetic diet #Hypertension :Continue home Metoprolol/Lisinopril # Restless leg Syndrome :Continue home Ropipranole DVT prophylaxis: Lovenox 40mg sq daily
--- NOTE | 2016-03-12 09:25 | PN ---
Physical Exam: SUBJECTIVE: Patient seen and examined OBJECTIVE: Vital Signs Period Temp Pulse Resp BP Sys/Wagner Pulse Ox Last 24 Hr 97.9 F-98.6 F 69-100 18-20 112-135/68-76 97 GENERAL: The patient is awake, alert, and fully oriented, in no acute distress. HEAD: Normal with no signs of trauma. LUNGS: Breath sounds equal, clear to auscultation bilaterally, no wheezes, no crackles, no accessory muscle use. HEART: Regular rate and rhythm, S1, S2 without murmur, rub or gallop. ABDOMEN: Soft, nontender, nondistended, normoactive bowel sounds, no guarding, no rebound, no hepatosplenomegaly, no masses. EXTREMITIES: 2+ pulses, warm, well-perfused, no edema, Right knee pain, Right knee redness decreased , pain decreased, warmth decreased since yesterday, no drainage NEUROLOGICAL: Cranial nerves II through XII grossly intact. Normal speech, gait not observed. PSYCH: Normal mood, normal affect. SKIN: Warm, dry, normal turgor, no rashes or lesions noted Laboratory Results - last 24 hr 03/11/16 03/11/16 03/11/16 12:27 16:40 21:17 WBC RBC Hgb Hct MCV MCHC RDW Plt Count MPV Neutrophils % Lymphocytes % Monocytes % Eosinophils % Basophils % Sodium Potassium Chloride Carbon Dioxide Anion Gap BUN Creatinine POC Glucometer 192 135 142 Random Glucose Calcium 03/12/16 03/12/16 03/12/16 05:35 05:35 05:55 WBC 8.4 RBC 4.98 Hgb 15.2 Hct 45.1 MCV 90.5 MCHC 33.6 RDW 14.1 Plt Count 118 L MPV 8.6 Neutrophils % 69.5 Lymphocytes % 17.1 Monocytes % 11.6 H Eosinophils % 1.4 D Basophils % 0.4 Sodium 137 Potassium 3.9 Chloride 103 Carbon Dioxide 25 Anion Gap 9 BUN 18 Creatinine 0.9 POC Glucometer 118 Random Glucose 130 H Calcium 8.7 Active Medications Generic Name Dose Route Start Last Admin Trade Name Freq PRN Reason Stop Dose Admin Acetaminophen 650 mg 03/10/16 14:43 Tylenol - PO Q4H PRN FEVER OR PAIN Docusate Sodium 100 mg 03/10/16 22:00 03/12/16 05:55 Colace - PO 100 mg TID JOEL Administration Enoxaparin Sodium 40 mg 03/11/16 10:00 03/11/16 10:26 Lovenox - SQ 40 mg DAILY JOEL Administration Piperacillin Sod/Tazobactam Sod 50 mls @ 100 mls/hr 03/11/16 12:30 03/12/16 01: 21 Zosyn 3.375gm Ivpb (Pre-Docked) IVPB 100 mls/hr Q8H-IV JOEL Administration Vancomycin HCl 250 mls @ 150 mls/hr 03/12/16 02:00 03/12/16 01:21 Vancomycin (Pre-Docked) IVPB 150 mls/hr DAILY@0200 JOEL Administration Insulin Aspart 1 vial 03/10/16 16:30 03/12/16 06:01 Novolog Vial Sliding Scale - SQ Not Given ACHS [facility] Protocol Lisinopril 20 mg 03/11/16 10:00 03/11/16 10:27 Prinivil PO 20 mg DAILY JOEL Administration Metoprolol Succinate 100 mg 03/11/16 10:00 03/11/16 10:27 Toprol Xl - PO 100 mg DAILY JOEL Administration Ondansetron HCl 4 mg 03/10/16 14:43 Zofran Injection IVPB Q6H PRN NAUSEA Oxycodone HCl 5 mg 03/10/16 14:43 Roxicodone - PO Q6H PRN PAIN Ropinirole HCl 3 mg 03/10/16 22:00 03/11/16 21:21 Requip - PO 3 mg HS JOEL Administration Rosuvastatin Calcium 40 mg 03/11/16 22:00 03/11/16 21:19 Crestor - PO 40 mg HS JOEL Administration ASSESSMENT/PLAN: Patient seen and examined, this is a 60 year old male with a history of NIDDM, HTN, and restless leg syndrome came to ed with right knee cellulitis (1) Cellulitis of knee, right right knee, erthyma decreased, wound cleaned with betadine on vanco and zosyn day 3 follow wound culture wbc normal limb elevation 2 Diabetes on sliding scale follow bgm diabetic diet 3 Hypertension -At goal -Continue home Metoprolol/Lisinopril 4 Restless leg -Continue home Ropipranole 5 DVT prophylaxis -Lovenox 40mg sq daily -PT fluid ; orally allowed electrolyte ; normal nutrition: diabetic diet dispo: admit in med surg Visit type - Emergency Visit Emergency Visit: Yes ED Registration Date: 03/10/16 Care time: The patient presented to the Emergency Department on the above date and was hospitalized for further evaluation of their emergent condition. - New Patient This patient is new to me today: No - Critical Care Critical Care patient: No
[2016-03-12] MEDS: METOPROLOL SUCCINATE 100 MG TAB.SR.24H (FP) PO SCH (10:18)
[2016-03-12] MEDS: LISINOPRIL 20 MG TABLET (FP) PO SCH (10:18)
[2016-03-12] MEDS: ENOXAPARIN NA (PORCINE) 40 MG/0.4 ML DISP.SYRIN SQ SCH (10:18)
--- NOTE | 2016-03-12 12:20 | HP ---
CHIEF COMPLAINT: PCP: HISTORY OF PRESENT ILLNESS: ER course was notable for: (1) (2) (3) Recent Travel: PAST MEDICAL HISTORY: PAST SURGICAL HISTORY: Social History: Smoking: Alcohol: Drugs: Family History: Allergies No Known Allergies Allergy (Verified 03/10/16 11:19) HOME MEDICATIONS: Medication Instructions Recorded Canagliflozin [Invokana] 100 mg PO DAILY 03/10/16 Lisinopril [Prinivil] 20 mg PO DAILY 03/10/16 Metoprolol Succinate [Toprol Xl] 100 mg PO DAILY 03/10/16 Ropinirole HCl 3 mg PO DAILY 03/10/16 Rosuvastatin Calcium [Crestor] 40 mg PO DAILY 03/10/16 Sitagliptin Phos/Metformin HCl 1 tab PO DAILY 03/10/16 [Janumet Xr 100-1,000 mg Tablet] REVIEW OF SYSTEMS CONSTITUTIONAL: Absent: fever, chills, diaphoresis, generalized weakness, malaise, loss of appetite, weight change HEENT: Absent: rhinorrhea, nasal congestion, throat pain, throat swelling, difficulty swallowing, mouth swelling, ear pain, eye pain, visual changes CARDIOVASCULAR: Absent: chest pain, syncope, palpitations, irregular heart rate, lightheadedness , peripheral edema RESPIRATORY: Absent: cough, shortness of breath, dyspnea with exertion, orthopnea, wheezing, stridor, hemoptysis GASTROINTESTINAL: Absent: abdominal pain, abdominal distension, nausea, vomiting, diarrhea, constipation, melena, hematochezia GENITOURINARY: Absent: dysuria, frequency, urgency, hesitancy, hematuria, flank pain, genital pain MUSCULOSKELETAL: Absent: myalgia, arthralgia, joint swelling, back pain, neck pain SKIN: Absent: rash, itching, pallor HEMATOLOGIC/IMMUNOLOGIC: Absent: easy bleeding, easy bruising, lymphadenopathy, frequent infections ENDOCRINE: Absent: unexplained weight gain, unexplained weight loss, heat intolerance, cold intolerance NEUROLOGIC: Absent: headache, focal weakness or paresthesias, dizziness, unsteady gait, seizure, mental status changes, bladder or bowel incontinence PSYCHIATRIC: Absent: anxiety, depression, suicidal or homicidal ideation, hallucinations. PHYSICAL EXAMINATION Vital Signs - 24 hr 03/11/16 03/11/16 03/11/16 13:53 17:17 20:30 Temperature 97.9 F 97.9 F Pulse Rate 69 91 H Respiratory 20 18 20 Rate Blood Pressure 135/75 O2 Sat by Pulse 97 Oximetry (%) 03/11/16 03/12/16 22:00 06:00 Temperature 98.1 F 98.6 F Pulse Rate 89 84 Respiratory 20 20 Rate Blood Pressure 127/68 121/76 O2 Sat by Pulse Oximetry (%) GENERAL: Awake, alert, and fully oriented, in no acute distress. HEAD: Normal with no signs of trauma. EYES: Pupils equal, round and reactive to light, extraocular movements intact, sclera anicteric, conjunctiva clear. No lid lag. EARS, NOSE, THROAT: Ears normal, nares patent, oropharynx clear without exudates. Moist mucous membranes. NECK: Normal range of motion, supple without lymphadenopathy, JVD, or masses. LUNGS: Breath sounds equal, clear to auscultation bilaterally. No wheezes, and no crackles. No accessory muscle use. HEART: Regular rate and rhythm, normal S1 and S2 without murmur, rub or gallop. ABDOMEN: Soft, nontender, not distended, normoactive bowel sounds, no guarding, no rebound, no masses. No hepatomegaly or splenomegaly. MUSCULOSKELETAL: Normal range of motion at all joints. No bony deformities or tenderness. No CVA tenderness. UPPER EXTREMITIES: 2+ pulses, warm, well-perfused. No cyanosis. No clubbing. Cap refill <2 seconds. No peripheral edema. LOWER EXTREMITIES: 2+ pulses, warm, well-perfused. No calf tenderness. No peripheral edema. NEUROLOGICAL: Cranial nerves II-XII intact. Normal speech. Normal gait. PSYCHIATRIC: Cooperative. Good eye contact. Appropriate mood and affect. SKIN: Warm, dry, normal turgor, no rashes or lesions noted. Laboratory Results - last 24 hr 03/11/16 03/11/16 03/11/16 12:27 16:40 21:17 WBC RBC Hgb Hct MCV MCHC RDW Plt Count MPV Neutrophils % Lymphocytes % Monocytes % Eosinophils % Basophils % Sodium Potassium Chloride Carbon Dioxide Anion Gap BUN Creatinine POC Glucometer 192 135 142 Random Glucose Calcium 03/12/16 03/12/16 03/12/16 05:35 05:35 05:55 WBC 8.4 RBC 4.98 Hgb 15.2 Hct 45.1 MCV 90.5 MCHC 33.6 RDW 14.1 Plt Count 118 L MPV 8.6 Neutrophils % 69.5 Lymphocytes % 17.1 Monocytes % 11.6 H Eosinophils % 1.4 D Basophils % 0.4 Sodium 137 Potassium 3.9 Chloride 103 Carbon Dioxide 25 Anion Gap 9 BUN 18 Creatinine 0.9 POC Glucometer 118 Random Glucose 130 H Calcium 8.7 ASSESSMENT/PLAN:
--- NOTE | 2016-03-12 13:36 | PN ---
Progress Note, Physician History of Present Illness: patients leg looks much better swelling and erythema better - Current Medication List Current Medications: Active Medications Acetaminophen (Tylenol -) 650 mg PO Q4H PRN PRN Reason: FEVER OR PAIN Docusate Sodium (Colace -) 100 mg PO TID [facility] Last Admin: 03/12/16 05:55 Dose: 100 mg Enoxaparin Sodium (Lovenox -) 40 mg SQ DAILY [facility] Last Admin: 03/12/16 10:18 Dose: 40 mg Piperacillin Sod/Tazobactam Sod (Zosyn 3.375gm Ivpb (Pre-Docked)) 50 mls @ 100 mls/hr IVPB Q8H-IV [facility] Last Admin: 03/12/16 10:17 Dose: 100 mls/hr Vancomycin HCl (Vancomycin (Pre-Docked)) 250 mls @ 150 mls/hr IVPB DAILY@0200 [facility] Last Admin: 03/12/16 01:21 Dose: 150 mls/hr Insulin Aspart (Novolog Vial Sliding Scale -) 1 vial SQ ACHS [facility] PRN Reason: Protocol Last Admin: 03/12/16 12:11 Dose: Not Given Lisinopril (Prinivil) 20 mg PO DAILY [facility] Last Admin: 03/12/16 10:18 Dose: 20 mg Metoprolol Succinate (Toprol Xl -) 100 mg PO DAILY [facility] Last Admin: 03/12/16 10:18 Dose: 100 mg Ondansetron HCl (Zofran Injection) 4 mg IVPB Q6H PRN PRN Reason: NAUSEA Oxycodone HCl (Roxicodone -) 5 mg PO Q6H PRN PRN Reason: PAIN Ropinirole HCl (Requip -) 3 mg PO HS [facility] Last Admin: 03/11/16 21:21 Dose: 3 mg Rosuvastatin Calcium (Crestor -) 40 mg PO [facility] Last Admin: 03/11/16 21:19 Dose: 40 mg - Objective Vital Signs: Vital Signs Temperature 98.6 F 03/12/16 06:00 Pulse Rate 84 03/12/16 06:00 Respiratory Rate 20 03/12/16 06:00 Blood Pressure 121/76 03/12/16 06:00 O2 Sat by Pulse Oximetry (%) 97 03/11/16 20:30 Constitutional: Yes: No Distress, Calm Cardiovascular: Yes: Regular Rate and Rhythm Respiratory: Yes: Regular, CTA Bilaterally Gastrointestinal: Yes: Normal Bowel Sounds, Soft Musculoskeletal: Yes: Other Extremities: Yes: Other (knee joint swelling decreased) Neurological: Yes: Alert, Oriented Psychiatric: Yes: Alert, Oriented Labs: CBC, BMP 03/12/16 05:35 03/12/16 05:35 INR, PTT INR 1.21 (0.82-1.09) H 03/10/16 13:00 Assessment/Plan Problem List - Problem (1) Cellulitis of knee, right Code(s): L03.115 - CELLULITIS OF RIGHT LOWER LIMB (2) Sepsis Code(s): A41.9 - SEPSIS, UNSPECIFIED ORGANISM Qualifiers: Sepsis type: sepsis due to unspecified organism Qualified Code(s): A41.9 - Sepsis, unspecified organism (3) Diabetes Code(s): E11.9 - TYPE 2 DIABETES MELLITUS WITHOUT COMPLICATIONS (4) Hypertension Code(s): I10 - ESSENTIAL (PRIMARY) HYPERTENSION (5) Restless leg Code(s): G25.81 - RESTLESS LEGS SYNDROME abscess of the knee rt plan await for the culture estelao and sancho improving
[2016-03-12] MEDS: ROSUVASTATIN CA 20 MG TABLET (FP) PO SCH (21:35)
[2016-03-12] MEDS: rOPINIRole HCL 3 MG TABLET PO SCH (21:36)
[2016-03-13] MEDS: VANCOMYCIN 1 GRAM (PRE-DOCKED) 250 ML IVPB SCH (01:35)
[2016-03-13] MEDS: PIPERACILLIN/TAZOB 3.375 GM 50 ML IVPB SCH ×3 (01:35→18:47)
[2016-03-13] MEDS: INSULIN SLIDING SCALE (NOVOLOG) 1 VIAL SQ SCH ×4 (06:18→21:05)
[2016-03-13] MEDS: DOCUSATE SODIUM 100 MG CAPSULE (FP) PO SCH ×3 (06:18→21:01)
[2016-03-13] MEDS: METOPROLOL SUCCINATE 100 MG TAB.SR.24H (FP) PO SCH (09:48)
[2016-03-13] MEDS: ENOXAPARIN NA (PORCINE) 40 MG/0.4 ML DISP.SYRIN SQ SCH (09:48)
[2016-03-13] MEDS: LISINOPRIL 20 MG TABLET (FP) PO SCH (09:48)
--- NOTE | 2016-03-13 13:16 | PN ---
Teaching Attending Note Name of Resident: Iván Kelly ATTENDING PHYSICIAN STATEMENT I saw and evaluated the patient. I reviewed the resident's note and discussed the case with the resident. I agree with the resident's findings and plan as documented. SUBJECTIVE: no fever or chills, denies any pain in R knee. OBJECTIVE: NAD , CV : RRR, no MRG Lung s: CTAB ext : no edema or erythema on L leg. R knee with erythematous skin on patella and surrounding area. no effusion detected . fading erythema over leg . R calf circumference > L DP 2+ b/l ASSESSMENT AND PLAN: 60 y/o man with h/o DM who presented with R knee swelling and erythema , he was found to have R knee cellulitis 1- R knee cellulitis with severe sepsis: improving . no knee effusion. ESR is 25 and CRP is not very elevated, reassuring ( no evidence of septic joint ) day 4 on zosyn and vanco wound cx with strep species . will ask Dr. Bridges, if vanco is still needed expect another day of IV abx , then probably can switch to po 2- DM : cont SSI , resume oral agents at dc 3- HTN : cont home meds dispo: possible dc tomorrow . will d/w Dr. Bridges
--- NOTE | 2016-03-13 15:44 | PN ---
Progress Note, Physician History of Present Illness: wound progressively improving swelling less mobility has increased - Current Medication List Current Medications: Active Medications Acetaminophen (Tylenol -) 650 mg PO Q4H PRN PRN Reason: FEVER OR PAIN Clindamycin HCl (Cleocin -) 300 mg PO Q6HPO [facility] Docusate Sodium (Colace -) 100 mg PO TID [facility] Last Admin: 03/13/16 14:02 Dose: Not Given Enoxaparin Sodium (Lovenox -) 40 mg SQ DAILY [facility] Last Admin: 03/13/16 09:48 Dose: 40 mg Piperacillin Sod/Tazobactam Sod (Zosyn 3.375gm Ivpb (Pre-Docked)) 50 mls @ 100 mls/hr IVPB Q8H-IV [facility] Last Admin: 03/13/16 09:48 Dose: 100 mls/hr Insulin Aspart (Novolog Vial Sliding Scale -) 1 vial SQ ACHS [facility] PRN Reason: Protocol Last Admin: 03/13/16 11:24 Dose: Not Given Lisinopril (Prinivil) 20 mg PO DAILY [facility] Last Admin: 03/13/16 09:48 Dose: 20 mg Metoprolol Succinate (Toprol Xl -) 100 mg PO DAILY [facility] Last Admin: 03/13/16 09:48 Dose: 100 mg Ondansetron HCl (Zofran Injection) 4 mg IVPB Q6H PRN PRN Reason: NAUSEA Ropinirole HCl (Requip -) 3 mg PO HS [facility] Rosuvastatin Calcium (Crestor -) 40 mg PO HS [facility] Last Admin: 03/12/16 21:35 Dose: 40 mg - Objective Vital Signs: Vital Signs Temperature 97.8 F 03/13/16 14:51 Pulse Rate 86 03/13/16 14:51 Respiratory Rate 20 03/13/16 14:51 Blood Pressure 127/78 03/13/16 14:51 O2 Sat by Pulse Oximetry (%) 94 L 03/13/16 08:34 Constitutional: Yes: No Distress, Calm Cardiovascular: Yes: Regular Rate and Rhythm Respiratory: Yes: Regular, CTA Bilaterally Gastrointestinal: Yes: Normal Bowel Sounds, Soft Musculoskeletal: Yes: Other Extremities: Yes: Erythema (knee joint) Integumentary: Yes: Erythema, Other Wound/Incision: Yes: Well Approximated Neurological: Yes: Alert, Oriented Psychiatric: Yes: Alert Labs: CBC, BMP 03/12/16 05:35 03/12/16 05:35 INR, PTT INR 1.21 (0.82-1.09) H 03/10/16 13:00 Assessment/Plan Problem List - Problem (1) Cellulitis of knee, right Code(s): L03.115 - CELLULITIS OF RIGHT LOWER LIMB (2) Sepsis Code(s): A41.9 - SEPSIS, UNSPECIFIED ORGANISM Qualifiers: Sepsis type: sepsis due to unspecified organism Qualified Code(s): A41.9 - Sepsis, unspecified organism (3) Diabetes Code(s): E11.9 - TYPE 2 DIABETES MELLITUS WITHOUT COMPLICATIONS (4) Hypertension Code(s): I10 - ESSENTIAL (PRIMARY) HYPERTENSION (5) Restless leg Code(s): G25.81 - RESTLESS LEGS SYNDROME abscess of the knee rt plan wound cx result noted stopped cristine switched to oral clinda will look at the wound tomorrow and decide if he can be switched to all oral abx
--- NOTE | 2016-03-13 17:35 | PN ---
Physical Exam: SUBJECTIVE: Patient seen and examined OBJECTIVE: Vital Signs Period Temp Pulse Resp BP Sys/Wagner Pulse Ox Last 24 Hr 97.7 F-98.6 F 81-96 18-20 117-151/64-85 94-97 GENERAL: The patient is awake, alert, and fully oriented, in no acute distress. HEAD: Normal with no signs of trauma. LUNGS: Breath sounds equal, clear to auscultation bilaterally, no wheezes, no crackles, no accessory muscle use. HEART: Regular rate and rhythm, S1, S2 without murmur, rub or gallop. ABDOMEN: Soft, nontender, nondistended, normoactive bowel sounds, no guarding, no rebound, no hepatosplenomegaly, no masses. EXTREMITIES: 2+ pulses, warm, well-perfused, no edema, Right knee pain, Right knee erythema decreased , pain decreased, warmth decreased since yesterday, no drainage NEUROLOGICAL: Cranial nerves II through XII grossly intact. Normal speech, gait not observed. PSYCH: Normal mood, normal affect. SKIN: Warm, dry, normal turgor, no rashes or lesions noted Laboratory Results - last 24 hr 03/12/16 03/12/16 03/13/16 17:26 21:34 05:27 POC Glucometer 219 164 156 03/13/16 11:23 POC Glucometer 129 Active Medications Generic Name Dose Route Start Last Admin Trade Name Freq PRN Reason Stop Dose Admin Acetaminophen 650 mg 03/10/16 14:43 Tylenol - PO Q4H PRN FEVER OR PAIN Clindamycin HCl 300 mg 03/13/16 18:00 Cleocin - PO Q6HPO [facility] Docusate Sodium 100 mg 03/10/16 22:00 03/13/16 14:02 Colace - PO Not Given TID [facility] Enoxaparin Sodium 40 mg 03/11/16 10:00 03/13/16 09:48 Lovenox - SQ 40 mg DAILY [facility] Administration Piperacillin Sod/Tazobactam Sod 50 mls @ 100 mls/hr 03/11/16 12:30 03/13/16 09: 48 Zosyn 3.375gm Ivpb (Pre-Docked) IVPB 100 mls/hr Q8H-IV [facility] Administration Insulin Aspart 1 vial 03/10/16 16:30 03/13/16 11:24 Novolog Vial Sliding Scale - SQ Not Given ACHS [facility] Protocol Lisinopril 20 mg 03/11/16 10:00 03/13/16 09:48 Prinivil PO 20 mg DAILY [facility] Administration Metoprolol Succinate 100 mg 03/11/16 10:00 03/13/16 09:48 Toprol Xl - PO 100 mg DAILY [facility] Administration Ondansetron HCl 4 mg 03/10/16 14:43 Zofran Injection IVPB Q6H PRN NAUSEA Ropinirole HCl 3 mg 03/13/16 22:00 Requip - PO HS [facility] Rosuvastatin Calcium 40 mg 03/11/16 22:00 03/12/16 21:35 Crestor - PO 40 mg HS [facility] Administration Microbiology 03/10/16 13:00 Blood - Peripheral Venous Blood Culture - Preliminary NO GROWTH OBTAINED AFTER 72 HOURS, INCUBATION TO CONTINUE FOR 2 DAYS. 03/10/16 13:00 Blood - Peripheral Venous Blood Culture - Preliminary NO GROWTH OBTAINED AFTER 72 HOURS, INCUBATION TO CONTINUE FOR 2 DAYS. 03/11/16 15:00 Knee - Right Gram Stain - Final 03/11/16 15:00 Knee - Right Wound Culture - Preliminary NO GROWTH OBTAINED AFTER 24 HOURS INCUBATION, REINCUBATED. 03/10/16 13:00 Knee - Right Gram Stain - Final 03/10/16 13:00 Knee - Right Wound Culture - Preliminary Strep Agalactiae Group B 03/10/16 14:30 Urine - Urine Clean Catch Urine Culture - Final ASSESSMENT/PLAN: Patient seen and examined, this is a 60 year old male with a history of NIDDM, HTN, and restless leg syndrome came to ed with right knee cellulitis (1) sever sepsis due Cellulitis of knee, right right knee, erthyma decreased, swelling decreasd zosyn day 4, clinda 600mg q6h, vonco stopped by id wound culture recorded :Strep Agalactiae Group B wbc normal limb elevation 2 Diabetes on sliding scale follow bgm diabetic diet 3 Hypertension -At goal -Continue home Metoprolol/Lisinopril 4 Restless leg -Continue home Ropipranole 5 DVT prophylaxis -Lovenox 40mg sq daily fluid ; orally allowed electrolyte ; normal nutrition: diabetic diet dispo: admit in med surg Visit type - Emergency Visit Emergency Visit: Yes ED Registration Date: 03/10/16 Care time: The patient presented to the Emergency Department on the above date and was hospitalized for further evaluation of their emergent condition. - New Patient This patient is new to me today: No - Critical Care Critical Care patient: No
[2016-03-13] MEDS ORDERED: CLINDAMYCIN HCL 300 MG CAPSULE PO SCH (18:00)
[2016-03-13] MEDS ORDERED: PT OWN MED DRAWER 7, Y5N ONE (18:40)
[2016-03-13] MEDS: CLINDAMYCIN HCL 150 MG CAPSULE (FP) PO SCH (19:01)
[2016-03-13] MEDS: ROSUVASTATIN CA 20 MG TABLET (FP) PO SCH (21:01)
[2016-03-13] MEDS: rOPINIRole HCL 3 MG TABLET PO SCH (21:01)
[2016-03-14] MEDS: CLINDAMYCIN HCL 150 MG CAPSULE (FP) PO SCH ×4 (01:13→17:43)
[2016-03-14] MEDS: PIPERACILLIN/TAZOB 3.375 GM 50 ML IVPB SCH ×3 (01:13→17:43)
[2016-03-14] MEDS: DOCUSATE SODIUM 100 MG CAPSULE (FP) PO SCH ×3 (06:10→21:19)
[2016-03-14] MEDS: INSULIN SLIDING SCALE (NOVOLOG) 1 VIAL SQ SCH ×4 (06:41→21:23)
[2016-03-14] MEDS: ENOXAPARIN NA (PORCINE) 40 MG/0.4 ML DISP.SYRIN SQ SCH (10:22)
[2016-03-14] MEDS: LISINOPRIL 20 MG TABLET (FP) PO SCH (10:23)
[2016-03-14] MEDS: METOPROLOL SUCCINATE 100 MG TAB.SR.24H (FP) PO SCH (10:23)
--- NOTE | 2016-03-14 12:43 | PN ---
Physical Exam: SUBJECTIVE: Patient seen and examined OBJECTIVE: Vital Signs Period Temp Pulse Resp BP Sys/Wagner Pulse Ox Last 24 Hr 97.8 F-99 F 80-88 18-20 114-156/71-92 94 GENERAL: The patient is awake, alert, and fully oriented, in no acute distress. HEAD: Normal with no signs of trauma. LUNGS: Breath sounds equal, clear to auscultation bilaterally, no wheezes, no crackles, no accessory muscle use. HEART: Regular rate and rhythm, S1, S2 without murmur, rub or gallop. ABDOMEN: Soft, nontender, nondistended, normoactive bowel sounds, no guarding, no rebound, no hepatosplenomegaly, no masses. EXTREMITIES: 2+ pulses, warm, well-perfused, no edema, Right knee pain, Right knee erythema decreased , pain decreased, warmth decreased since yesterday, no drainage, no pain on walking NEUROLOGICAL: Cranial nerves II through XII grossly intact. Normal speech, gait not observed. PSYCH: Normal mood, normal affect. SKIN: Warm, dry, normal turgor, no rashes or lesions noted Laboratory Results - last 24 hr 03/13/16 03/13/16 03/14/16 17:51 21:04 06:13 POC Glucometer 231 222 152 03/14/16 11:57 POC Glucometer 149 Active Medications Generic Name Dose Route Start Last Admin Trade Name Freq PRN Reason Stop Dose Admin Acetaminophen 650 mg 03/10/16 14:43 Tylenol - PO Q4H PRN FEVER OR PAIN Clindamycin HCl 300 mg 03/13/16 19:00 03/14/16 12:02 Cleocin - PO 300 mg Q6HPO [facility] Administration Docusate Sodium 100 mg 03/10/16 22:00 03/14/16 06:10 Colace - PO 100 mg TID [facility] Administration Enoxaparin Sodium 40 mg 03/11/16 10:00 03/14/16 10:22 Lovenox - SQ 40 mg DAILY [facility] Administration Piperacillin Sod/Tazobactam Sod 50 mls @ 100 mls/hr 03/11/16 12:30 03/14/16 10: 21 Zosyn 3.375gm Ivpb (Pre-Docked) IVPB 100 mls/hr Q8H-IV [facility] Administration Insulin Aspart 1 vial 03/10/16 16:30 03/14/16 12:04 Novolog Vial Sliding Scale - SQ Not Given ACHS [facility] Protocol Lisinopril 20 mg 03/11/16 10:00 03/14/16 10:23 Prinivil PO 20 mg DAILY [facility] Administration Metoprolol Succinate 100 mg 03/11/16 10:00 03/14/16 10:23 Toprol Xl - PO 100 mg DAILY [facility] Administration Ondansetron HCl 4 mg 03/10/16 14:43 Zofran Injection IVPB Q6H PRN NAUSEA Ropinirole HCl 3 mg 03/13/16 22:00 03/13/16 21:01 Requip - PO 3 mg HS [facility] Administration Rosuvastatin Calcium 40 mg 03/11/16 22:00 03/13/16 21:01 Crestor - PO 40 mg HS [facility] Administration ASSESSMENT/PLAN: Patient seen and examined, this is a 60 year old male with a history of NIDDM, HTN, and restless leg syndrome came to ed with right knee cellulitis (1) sever sepsis due Cellulitis of knee, right right knee, erthyma decreased, swelling decreasd, temp to touch decreased zosyn day 5, clinda 300mg q6h day 2 , vonco stopped by id wound culture recorded :Strep Agalactiae Group B senstive to vanco, penicillin, levoflox, dapto and linizolid wbc normal limb elevation ID consult appreciated 2 Diabetes : on sliding scale follow bgm : 149 diabetic diet 3 Hypertension -At goal -Continue home Metoprolol/Lisinopril 4 Restless leg -Continue home Ropipranole 5 DVT prophylaxis -Lovenox 40mg sq daily fluid ; orally allowed electrolyte ; normal nutrition: diabetic diet dispo: admit in med surg Visit type - Emergency Visit Emergency Visit: Yes ED Registration Date: 03/10/16 Care time: The patient presented to the Emergency Department on the above date and was hospitalized for further evaluation of their emergent condition. - New Patient This patient is new to me today: No - Critical Care Critical Care patient: No
--- NOTE | 2016-03-14 13:12 | PN ---
Progress Note, Physician History of Present Illness: ana looking much better no complaints movement without pain - Current Medication List Current Medications: Active Medications Acetaminophen (Tylenol -) 650 mg PO Q4H PRN PRN Reason: FEVER OR PAIN Clindamycin HCl (Cleocin -) 300 mg PO Q6HPO [facility] Last Admin: 03/14/16 12:02 Dose: 300 mg Docusate Sodium (Colace -) 100 mg PO TID [facility] Last Admin: 03/14/16 06:10 Dose: 100 mg Enoxaparin Sodium (Lovenox -) 40 mg SQ DAILY [facility] Last Admin: 03/14/16 10:22 Dose: 40 mg Piperacillin Sod/Tazobactam Sod (Zosyn 3.375gm Ivpb (Pre-Docked)) 50 mls @ 100 mls/hr IVPB Q8H-IV [facility] Last Admin: 03/14/16 10:21 Dose: 100 mls/hr Insulin Aspart (Novolog Vial Sliding Scale -) 1 vial SQ ACHS [facility] PRN Reason: Protocol Last Admin: 03/14/16 12:04 Dose: Not Given Lisinopril (Prinivil) 20 mg PO DAILY [facility] Last Admin: 03/14/16 10:23 Dose: 20 mg Metoprolol Succinate (Toprol Xl -) 100 mg PO DAILY [facility] Last Admin: 03/14/16 10:23 Dose: 100 mg Ondansetron HCl (Zofran Injection) 4 mg IVPB Q6H PRN PRN Reason: NAUSEA Ropinirole HCl (Requip -) 3 mg PO HS [facility] Last Admin: 03/13/16 21:01 Dose: 3 mg Rosuvastatin Calcium (Crestor -) 40 mg PO [facility] Last Admin: 03/13/16 21:01 Dose: 40 mg - Objective Vital Signs: Vital Signs Temperature 98.6 F 03/14/16 06:00 Pulse Rate 80 03/14/16 06:00 Respiratory Rate 18 03/14/16 06:00 Blood Pressure 147/86 03/14/16 06:00 O2 Sat by Pulse Oximetry (%) 94 L 03/13/16 20:59 Constitutional: Yes: No Distress, Calm Eyes: Yes: Conjunctiva Clear Cardiovascular: Yes: Regular Rate and Rhythm Respiratory: Yes: Regular, CTA Bilaterally Gastrointestinal: Yes: Normal Bowel Sounds, Soft Musculoskeletal: Yes: Other Extremities: Yes: Erythema (knee joint) Wound/Incision: Yes: Dressing Dry and Intact Neurological: Yes: Alert, Oriented Psychiatric: Yes: Alert Labs: CBC, BMP 03/12/16 05:35 03/12/16 05:35 INR, PTT INR 1.21 (0.82-1.09) H 03/10/16 13:00 Assessment/Plan Problem List - Problem (1) Cellulitis of knee, right Code(s): L03.115 - CELLULITIS OF RIGHT LOWER LIMB (2) Sepsis Code(s): A41.9 - SEPSIS, UNSPECIFIED ORGANISM Qualifiers: Sepsis type: sepsis due to unspecified organism Qualified Code(s): A41.9 - Sepsis, unspecified organism (3) Diabetes Code(s): E11.9 - TYPE 2 DIABETES MELLITUS WITHOUT COMPLICATIONS (4) Hypertension Code(s): I10 - ESSENTIAL (PRIMARY) HYPERTENSION (5) Restless leg Code(s): G25.81 - RESTLESS LEGS SYNDROME abscess of the knee rt plan wound cx result noted will switch to oral abx tomorrow continue clinda
--- NOTE | 2016-03-14 15:57 | PN ---
Teaching Attending Note Name of Resident: Iván Kelly ATTENDING PHYSICIAN STATEMENT I saw and evaluated the patient. I reviewed the resident's note and discussed the case with the resident. I agree with the resident's findings and plan as documented. SUBJECTIVE: no fever or chills . no pain . OBJECTIVE: NAD , CV: RRR, no MRG Lungs: CTAB ext: no edema or erythema on L leg. resolving R knee with erythematous skin on patella and surrounding area. no effusion detected . R calf circumference > L DP 2+ b/l ASSESSMENT AND PLAN: 60 y/o man with h/o DM who presented with R knee swelling and erythema , he was found to have R knee cellulitis 1- R knee cellulitis with severe sepsis: improving . cont clinda and zosyn. will switch to po tomorrow 2- DM : cont SSI , resume oral agents at dc 3- HTN : cont home meds Dispo: WILL DC home tomorrow
[2016-03-14] MEDS: rOPINIRole HCL 3 MG TABLET PO SCH (21:19)
[2016-03-14] MEDS: ROSUVASTATIN CA 20 MG TABLET (FP) PO SCH (21:19)
[2016-03-15] MEDS: CLINDAMYCIN HCL 150 MG CAPSULE (FP) PO SCH ×4 (01:14→17:37)
[2016-03-15] MEDS: PIPERACILLIN/TAZOB 3.375 GM 50 ML IVPB SCH ×3 (01:15→17:37)
[2016-03-15] MEDS: DOCUSATE SODIUM 100 MG CAPSULE (FP) PO SCH ×3 (05:39→21:53)
[2016-03-15] MEDS: INSULIN SLIDING SCALE (NOVOLOG) 1 VIAL SQ SCH ×4 (06:25→21:53)
[2016-03-15 07:38] LABS: BASOPHIL 0.5 % (0-2.0); MCH 30.4 pg (25.7-33.7); MCHC 33.9 g/dl (32.0-35.9); MEAN CELL VOLUME 89.7 fl (80-96); MEAN PLT VOLUME 8.2 fl (7.5-11.1); NEUTROPHILS 65.3 % (42.8-82.8); PLATELET COUNT 163 K/MM3 (134-434); RDW 13.4 % (11.9-15.9); WHITE BLOOD COUNT 6.3 K/mm3 (4.0-10.0)
[2016-03-15] MEDS: METOPROLOL SUCCINATE 100 MG TAB.SR.24H (FP) PO SCH (10:18)
[2016-03-15] MEDS: ENOXAPARIN NA (PORCINE) 40 MG/0.4 ML DISP.SYRIN SQ SCH (10:18)
[2016-03-15] MEDS: LISINOPRIL 20 MG TABLET (FP) PO SCH (10:18)
--- NOTE | 2016-03-15 13:04 | PN ---
Teaching Attending Note Name of Resident: Noe Gil ATTENDING PHYSICIAN STATEMENT I saw and evaluated the patient. I reviewed the resident's note and discussed the case with the resident. I agree with the resident's findings and plan as documented. SUBJECTIVE: NO pain in His knee , cont to improve . no fever or chills. OBJECTIVE: NAD , CV: RRR, no MRG Lungs: CTAB ext: no edema or erythema on L leg. resolving R knee erythematous skin on patella and surrounding area. no effusion detected . ASSESSMENT AND PLAN: 60 y/o man with h/o DM who presented with R knee swelling and erythema , he was found to have R knee cellulitis 1- R knee cellulitis with severe sepsis: improving . will switch to po abx today ( probably clinda and Augmentin ) 2- DM : cont SSI , resume oral agents at dc 3- HTN : cont home meds Will D/W Dr. Yuliana barber. choice of Abx and dc home today
--- NOTE | 2016-03-15 13:21 | PN ---
Progress Note, Physician History of Present Illness: seen and evaluated the patient knee continues to improve still the cellulitis is there family in room I arnavve discussed with him and his son that he still needs iv abx for couple of days patient wants to go home i have also explained him that it is the joint and dangers of not getting complete treatment he still wants to go home - Current Medication List Current Medications: Active Medications Acetaminophen (Tylenol -) 650 mg PO Q4H PRN PRN Reason: FEVER OR PAIN Clindamycin HCl (Cleocin -) 300 mg PO Q6HPO [facility] Last Admin: 03/15/16 12:25 Dose: 300 mg Docusate Sodium (Colace -) 100 mg PO TID [facility] Last Admin: 03/15/16 05:39 Dose: 100 mg Enoxaparin Sodium (Lovenox -) 40 mg SQ DAILY [facility] Last Admin: 03/15/16 10:18 Dose: 40 mg Piperacillin Sod/Tazobactam Sod (Zosyn 3.375gm Ivpb (Pre-Docked)) 50 mls @ 100 mls/hr IVPB Q8H-IV [facility] Last Admin: 03/15/16 10:37 Dose: 100 mls/hr Insulin Aspart (Novolog Vial Sliding Scale -) 1 vial SQ ACHS [facility] PRN Reason: Protocol Last Admin: 03/15/16 11:37 Dose: 2 units Lisinopril (Prinivil) 20 mg PO DAILY [facility] Last Admin: 03/15/16 10:18 Dose: 20 mg Metoprolol Succinate (Toprol Xl -) 100 mg PO DAILY [facility] Last Admin: 03/15/16 10:18 Dose: 100 mg Ondansetron HCl (Zofran Injection) 4 mg IVPB Q6H PRN PRN Reason: NAUSEA Ropinirole HCl (Requip -) 3 mg PO HS [facility] Last Admin: 03/14/16 21:19 Dose: 3 mg Rosuvastatin Calcium (Crestor -) 40 mg PO HS [facility] Last Admin: 03/14/16 21:19 Dose: 40 mg - Objective Vital Signs: Vital Signs Temperature 97.8 F 03/15/16 10:00 Pulse Rate 86 03/15/16 10:00 Respiratory Rate 19 03/15/16 10:00 Blood Pressure 159/92 03/15/16 10:00 O2 Sat by Pulse Oximetry (%) 97 03/15/16 09:00 Constitutional: Yes: No Distress, Calm HENT: Yes: Atraumatic, Normocephalic Cardiovascular: Yes: Regular Rate and Rhythm Respiratory: Yes: Regular, CTA Bilaterally Gastrointestinal: Yes: Normal Bowel Sounds, Soft Musculoskeletal: Yes: Other Extremities: Yes: Erythema (still present but better on the rt knee joint), Other (swelling has decreased,no discharge) Integumentary: Yes: Erythema (rt knee joint) Wound/Incision: Yes: Clean/Dry Neurological: Yes: Alert, Oriented Labs: CBC, BMP 03/15/16 06:15 03/12/16 05:35 INR, PTT INR 1.21 (0.82-1.09) H 03/10/16 13:00 Assessment/Plan Problem List - Problem (1) Cellulitis of knee, right Code(s): L03.115 - CELLULITIS OF RIGHT LOWER LIMB (2) Sepsis Code(s): A41.9 - SEPSIS, UNSPECIFIED ORGANISM Qualifiers: Sepsis type: sepsis due to unspecified organism Qualified Code(s): A41.9 - Sepsis, unspecified organism (3) Diabetes Code(s): E11.9 - TYPE 2 DIABETES MELLITUS WITHOUT COMPLICATIONS (4) Hypertension Code(s): I10 - ESSENTIAL (PRIMARY) HYPERTENSION (5) Restless leg Code(s): G25.81 - RESTLESS LEGS SYNDROME abscess of the knee rt plan patient still needs iv abx but since patient wants to go home we can try him on augmentin 875mg twice a day for another 8 days jovita the same dose of clinda for another 8 days
--- NOTE | 2016-03-15 18:59 | PN ---
Physical Exam: SUBJECTIVE: Patient seen and examined Feels better, swelling is decreased since admission. requests to go home. denies fever, right knee pain. OBJECTIVE: Vital Signs Period Temp Pulse Resp BP Sys/Wagner Pulse Ox Last 24 Hr 97.5 F-98.6 F 83-99 18-20 119-162/68-92 97-99 GENERAL: The patient is awake, alert, and fully oriented, in no acute distress. HEAD: Normal with no signs of trauma. EYES: extraocular movements intact, sclera anicteric, conjunctiva clear. ENT: Ears normal, nares patent, oropharynx clear without exudates, moist mucous membranes. NECK: Trachea midline, full range of motion, supple. LUNGS: Breath sounds equal, clear to auscultation bilaterally, HEART: Regular rate and rhythm, S1, S2 without murmur. ABDOMEN: Soft, nontender, nondistended, normoactive bowel sounds, EXTREMITIES: 2+ pulses, warm, well-perfused, no edema. right knee with blanching erythema, small area of dried scab, nontender, FROM, no fluctuance or discharge. weight bearing without difficulty NEUROLOGICAL: Normal speech, gait normal PSYCH: Normal mood, normal affect. Laboratory Results - last 24 hr 03/14/16 03/15/16 03/15/16 21:21 05:45 06:15 WBC 6.3 RBC 5.01 Hgb 15.3 Hct 45.0 MCV 89.7 MCHC 33.9 RDW 13.4 Plt Count 163 D MPV 8.2 Neutrophils % 65.3 Lymphocytes % 18.0 Monocytes % 13.2 H Eosinophils % 3.0 D Basophils % 0.5 POC Glucometer 207 177 03/15/16 03/15/16 11:25 17:21 WBC RBC Hgb Hct MCV MCHC RDW Plt Count MPV Neutrophils % Lymphocytes % Monocytes % Eosinophils % Basophils % POC Glucometer 165 257 Active Medications Generic Name Dose Route Start Last Admin Trade Name Freq PRN Reason Stop Dose Admin Acetaminophen 650 mg 03/10/16 14:43 Tylenol - PO Q4H PRN FEVER OR PAIN Clindamycin HCl 300 mg 03/13/16 19:00 03/15/16 17:37 Cleocin - PO 300 mg Q6HPO JOEL Administration Docusate Sodium 100 mg 03/10/16 22:00 03/15/16 15:05 Colace - PO 100 mg TID JOEL Administration Enoxaparin Sodium 40 mg 03/11/16 10:00 03/15/16 10:18 Lovenox - SQ 40 mg DAILY JOEL Administration Piperacillin Sod/Tazobactam Sod 50 mls @ 100 mls/hr 03/11/16 12:30 03/15/16 17: 37 Zosyn 3.375gm Ivpb (Pre-Docked) IVPB 100 mls/hr Q8H-IV JOEL Administration Insulin Aspart 1 vial 03/10/16 16:30 03/15/16 17:37 Novolog Vial Sliding Scale - SQ 6 units ACHS JOEL Administration Protocol Lisinopril 20 mg 03/11/16 10:00 03/15/16 10:18 Prinivil PO 20 mg DAILY JOEL Administration Metoprolol Succinate 100 mg 03/11/16 10:00 03/15/16 10:18 Toprol Xl - PO 100 mg DAILY JOEL Administration Ondansetron HCl 4 mg 03/10/16 14:43 Zofran Injection IVPB Q6H PRN NAUSEA Ropinirole HCl 3 mg 03/13/16 22:00 03/14/16 21:19 Requip - PO 3 mg HS JOEL Administration Rosuvastatin Calcium 40 mg 03/11/16 22:00 03/14/16 21:19 Crestor - PO 40 mg HS JOEL Administration ASSESSMENT/PLAN: 60 yr old man with DM, HLD, presented with right knee swelling admitted for right knee cellulites without osteomyelitis. #right knee cellulitis - improving - cleocin 300mg po q6hr - start 03/13 -zosyn 3.375 q8h -- start 03/11 #DM - controlled - novolog sliding scale - lisinopril 20mg qd #HLD - crestor 40mg po hs #constipation - docusate 100mg po tid #DVT prophylaxis - 40mg subq #continue home med ropinirole 3mg #diet: diabetic diet #dispo: d/c home with oral antibiotics, likely tomorrow Visit type - Emergency Visit Emergency Visit: No - New Patient This patient is new to me today: Yes Date on this admission: 03/15/16 - Critical Care Critical Care patient: No - Discharge Referral Referred to [facility] Med P.C.: No
[2016-03-15] MEDS ORDERED: PT OWN MED DRAWER 7, Y5N ONE (21:00)
[2016-03-15] MEDS: rOPINIRole HCL 3 MG TABLET PO SCH (21:53)
[2016-03-15] MEDS: ROSUVASTATIN CA 20 MG TABLET (FP) PO SCH (21:54)
[2016-03-16] MEDS: CLINDAMYCIN HCL 150 MG CAPSULE (FP) PO SCH ×5 (01:02→23:02)
[2016-03-16] MEDS: PIPERACILLIN/TAZOB 3.375 GM 50 ML IVPB SCH ×3 (01:02→17:22)
[2016-03-16] MEDS: DOCUSATE SODIUM 100 MG CAPSULE (FP) PO SCH ×3 (06:17→23:03)
[2016-03-16] MEDS: INSULIN SLIDING SCALE (NOVOLOG) 1 VIAL SQ SCH ×4 (06:17→23:03)
[2016-03-16] MEDS: ENOXAPARIN NA (PORCINE) 40 MG/0.4 ML DISP.SYRIN SQ SCH (09:43)
[2016-03-16] MEDS: METOPROLOL SUCCINATE 100 MG TAB.SR.24H (FP) PO SCH (09:44)
[2016-03-16] MEDS: LISINOPRIL 20 MG TABLET (FP) PO SCH (09:44)
--- NOTE | 2016-03-16 12:08 | PN ---
Progress Note (short form) - Note Progress Note: Subjective: no fever or chills, no abd pain , no Knee pain Objective: Vital Signs: Last Vital Signs Temp Pulse Resp BP Pulse Ox 98.3 F 80 20 118/75 96 03/16/16 06:00 03/16/16 06:00 03/16/16 06:00 03/16/16 06:00 03/15/16 21:00 Labs: Laboratory Results - last 24 hr 03/15/16 03/15/16 03/16/16 17:21 21:48 05:45 POC Glucometer 257 141 182 PE : NAD , CV: RRR, no MRG Lungs: CTAB ext: no edema or erythema on L leg. Erythematous skin on medial aspect of knee . no effusion detected . increased warmth of R knee ASSESSMENT AND PLAN: 60 y/o man with h/o DM who presented with R knee swelling and erythema , he was found to have R knee cellulitis 1- R knee cellulitis with severe sepsis: improving . Due to the persistent erythema and increased warmth of R knee, will cont zosyn and po clinda will re-evaluate tomorrow to decide on Abx regimen 2- DM : cont SSI , resume oral agents at dc 3- HTN : cont home meds HLOC Visit type - Emergency Visit Emergency Visit: Yes ED Registration Date: 03/10/16 Care time: The patient presented to the Emergency Department on the above date and was hospitalized for further evaluation of their emergent condition. - New Patient This patient is new to me today: No - Critical Care Critical Care patient: No
[2016-03-16] MEDS: FLUTICASONE PROP 0.05% 16 GM NASAL SPRAY NS SCH (14:23)
--- NOTE | 2016-03-16 14:52 | PN ---
Progress Note, Physician History of Present Illness: knee still very warm no pain - Current Medication List Current Medications: Active Medications Acetaminophen (Tylenol -) 650 mg PO Q4H PRN PRN Reason: FEVER OR PAIN Clindamycin HCl (Cleocin -) 300 mg PO Q6HPO [facility] Last Admin: 03/16/16 11:59 Dose: 300 mg Docusate Sodium (Colace -) 100 mg PO TID [facility] Last Admin: 03/16/16 14:23 Dose: 100 mg Enoxaparin Sodium (Lovenox -) 40 mg SQ DAILY [facility] Last Admin: 03/16/16 09:43 Dose: 40 mg Fluticasone Propionate (Flonase -) 1 spray NS DAILY [facility] Last Admin: 03/16/16 14:23 Dose: 1 spray Piperacillin Sod/Tazobactam Sod (Zosyn 3.375gm Ivpb (Pre-Docked)) 50 mls @ 100 mls/hr IVPB Q8H-IV [facility] Last Admin: 03/16/16 09:44 Dose: 100 mls/hr Insulin Aspart (Novolog Vial Sliding Scale -) 1 vial SQ ACHS [facility] PRN Reason: Protocol Last Admin: 03/16/16 12:04 Dose: 2 units Lisinopril (Prinivil) 20 mg PO DAILY [facility] Last Admin: 03/16/16 09:44 Dose: 20 mg Metoprolol Succinate (Toprol Xl -) 100 mg PO DAILY [facility] Last Admin: 03/16/16 09:44 Dose: 100 mg Ondansetron HCl (Zofran Injection) 4 mg IVPB Q6H PRN PRN Reason: NAUSEA Ropinirole HCl (Requip -) 3 mg PO HS [facility] Last Admin: 03/15/16 21:53 Dose: 3 mg Rosuvastatin Calcium (Crestor -) 40 mg PO HS [facility] Last Admin: 03/15/16 21:54 Dose: 40 mg - Objective Vital Signs: Vital Signs Temperature 98.0 F 03/16/16 10:00 Pulse Rate 86 03/16/16 10:00 Respiratory Rate 20 03/16/16 10:00 Blood Pressure 139/78 03/16/16 10:00 O2 Sat by Pulse Oximetry (%) 96 03/16/16 09:00 Constitutional: Yes: No Distress, Calm Cardiovascular: Yes: Regular Rate and Rhythm Respiratory: Yes: Regular, CTA Bilaterally Gastrointestinal: Yes: Normal Bowel Sounds, Soft Musculoskeletal: Yes: Other Extremities: Yes: Other Neurological: Yes: Alert, Oriented Psychiatric: Yes: Alert Labs: CBC, BMP 03/15/16 06:15 03/12/16 05:35 INR, PTT INR 1.21 (0.82-1.09) H 03/10/16 13:00 Assessment/Plan Problem List - Problem (1) Cellulitis of knee, right Code(s): L03.115 - CELLULITIS OF RIGHT LOWER LIMB (2) Sepsis Code(s): A41.9 - SEPSIS, UNSPECIFIED ORGANISM Qualifiers: Sepsis type: sepsis due to unspecified organism Qualified Code(s): A41.9 - Sepsis, unspecified organism (3) Diabetes Code(s): E11.9 - TYPE 2 DIABETES MELLITUS WITHOUT COMPLICATIONS (4) Hypertension Code(s): I10 - ESSENTIAL (PRIMARY) HYPERTENSION (5) Restless leg Code(s): G25.81 - RESTLESS LEGS SYNDROME abscess of the knee rt cellulitis still persisting plan will check crp if knee does not improve will have to reimage might have to change abx will d/w the primary team
[2016-03-16] MEDS ORDERED: PT OWN MED DRAWER 7, Y5N ONE (21:26)
[2016-03-16] MEDS ORDERED: INSULIN (NOVOLOG) ASPART 100 UNITS/ML 10ML VIAL ONE (21:26)
[2016-03-16] MEDS: ROSUVASTATIN CA 20 MG TABLET (FP) PO SCH (23:03)
[2016-03-16] MEDS: rOPINIRole HCL 3 MG TABLET PO SCH (23:04)
[2016-03-17] MEDS: PIPERACILLIN/TAZOB 3.375 GM 50 ML IVPB SCH ×3 (02:28→18:14)
[2016-03-17] MEDS ORDERED: PT OWN MED DRAWER 7, Y5N ONE (02:38)
[2016-03-17] MEDS: CLINDAMYCIN HCL 150 MG CAPSULE (FP) PO SCH ×4 (06:42→23:46)
[2016-03-17] MEDS: DOCUSATE SODIUM 100 MG CAPSULE (FP) PO SCH ×3 (06:42→21:40)
[2016-03-17] MEDS: INSULIN SLIDING SCALE (NOVOLOG) 1 VIAL SQ SCH ×4 (06:43→21:39)
[2016-03-17] MEDS ORDERED: VANCOMYCIN 1 GRAM (PRE-DOCKED) 250 ML IVPB ONE (10:00)
[2016-03-17] MEDS: METOPROLOL SUCCINATE 100 MG TAB.SR.24H (FP) PO SCH (10:40)
[2016-03-17] MEDS: LISINOPRIL 20 MG TABLET (FP) PO SCH (10:40)
[2016-03-17] MEDS: ENOXAPARIN NA (PORCINE) 40 MG/0.4 ML DISP.SYRIN SQ SCH (10:40)
[2016-03-17] MEDS: FLUTICASONE PROP 0.05% 16 GM NASAL SPRAY NS SCH (10:40)
--- NOTE | 2016-03-17 14:11 | PN ---
Progress Note (short form) - Note Progress Note: Subjective: no fever or chills, no abd pain , no Knee pain Objective: Vital Signs: Last Vital Signs Temp Pulse Resp BP Pulse Ox 97.8 F 78 20 128/63 96 03/17/16 05:56 03/17/16 05:56 03/17/16 05:56 03/17/16 05:56 03/16/16 21:00 Laboratory Results - last 24 hr 03/16/16 03/16/16 03/16/16 15:00 17:24 23:01 POC Glucometer 219 189 C-Reactive Protein 1.1 H D 03/17/16 06:41 POC Glucometer 158 C-Reactive Protein NAD , CV: RRR, no MRG Lungs: CTAB ext: no edema or erythema on L leg. Erythema on medial R knee has decreased. no effusion . Increased warmth of R knee ASSESSMENT AND PLAN: 60 y/o man with h/o DM who presented with R knee swelling and erythema , he was found to have R knee cellulitis 1- R knee cellulitis with severe sepsis: improving . - cont zosyn - vanco this am . cont - appreciate Dr. Yuliana Nava. - if worsens further , will obtain MRI of the knee 2- DM : cont SSI , resume oral agents at dc 3- HTN : cont home meds HLOC Visit type - Emergency Visit Emergency Visit: Yes ED Registration Date: 03/10/16 Care time: The patient presented to the Emergency Department on the above date and was hospitalized for further evaluation of their emergent condition. - New Patient This patient is new to me today: No - Critical Care Critical Care patient: No
--- NOTE | 2016-03-17 16:08 | PN ---
Progress Note, Physician History of Present Illness: knee joint cellulitis looks much better still with some warmth erythema markedly decreased - Current Medication List Current Medications: Active Medications Acetaminophen (Tylenol -) 650 mg PO Q4H PRN PRN Reason: FEVER OR PAIN Clindamycin HCl (Cleocin -) 300 mg PO Q6HPO [facility] Last Admin: 03/17/16 13:00 Dose: 300 mg Docusate Sodium (Colace -) 100 mg PO TID [facility] Last Admin: 03/17/16 06:42 Dose: 100 mg Enoxaparin Sodium (Lovenox -) 40 mg SQ DAILY [facility] Last Admin: 03/17/16 10:40 Dose: 40 mg Fluticasone Propionate (Flonase -) 1 spray NS DAILY [facility] Last Admin: 03/17/16 10:40 Dose: 1 spray Piperacillin Sod/Tazobactam Sod (Zosyn 3.375gm Ivpb (Pre-Docked)) 50 mls @ 100 mls/hr IVPB Q8H-IV [facility] Last Admin: 03/17/16 10:41 Dose: 100 mls/hr Vancomycin HCl 1,000 mg/ (Dextrose) 250 mls @ 250 mls/hr IVPB Q12H [facility] Insulin Aspart (Novolog Vial Sliding Scale -) 1 vial SQ ACHS [facility] PRN Reason: Protocol Last Admin: 03/17/16 13:00 Dose: 6 units Lisinopril (Prinivil) 20 mg PO DAILY [facility] Last Admin: 03/17/16 10:40 Dose: 20 mg Metoprolol Succinate (Toprol Xl -) 100 mg PO DAILY [facility] Last Admin: 03/17/16 10:40 Dose: 100 mg Ondansetron HCl (Zofran Injection) 4 mg IVPB Q6H PRN PRN Reason: NAUSEA Ropinirole HCl (Requip -) 3 mg PO HS [facility] Last Admin: 03/16/16 23:04 Dose: 3 mg Rosuvastatin Calcium (Crestor -) 40 mg PO HS [facility] Last Admin: 03/16/16 23:03 Dose: 40 mg - Objective Vital Signs: Vital Signs Temperature 97.9 F 03/17/16 14:18 Pulse Rate 83 03/17/16 14:18 Respiratory Rate 20 03/17/16 14:18 Blood Pressure 109/79 03/17/16 14:18 O2 Sat by Pulse Oximetry (%) 96 03/17/16 10:00 Constitutional: Yes: No Distress, Calm Cardiovascular: Yes: Regular Rate and Rhythm Respiratory: Yes: Regular, CTA Bilaterally Gastrointestinal: Yes: Normal Bowel Sounds, Soft Musculoskeletal: Yes: WNL Extremities: Yes: Erythema (much better), Other Neurological: Yes: Alert, Oriented Psychiatric: Yes: Alert Labs: CBC, BMP 03/15/16 06:15 03/12/16 05:35 INR, PTT INR 1.21 (0.82-1.09) H 03/10/16 13:00 Assessment/Plan Problem List - Problem (1) Cellulitis of knee, right Code(s): L03.115 - CELLULITIS OF RIGHT LOWER LIMB (2) Sepsis Code(s): A41.9 - SEPSIS, UNSPECIFIED ORGANISM Qualifiers: Sepsis type: sepsis due to unspecified organism Qualified Code(s): A41.9 - Sepsis, unspecified organism (3) Diabetes Code(s): E11.9 - TYPE 2 DIABETES MELLITUS WITHOUT COMPLICATIONS (4) Hypertension Code(s): I10 - ESSENTIAL (PRIMARY) HYPERTENSION (5) Restless leg Code(s): G25.81 - RESTLESS LEGS SYNDROME abscess of the knee rt cellulitis still persisting plan knee much better we might be able to send patient home probably by friday evening or fri i becky d/w the family
[2016-03-17] MEDS: ROSUVASTATIN CA 20 MG TABLET (FP) PO SCH (21:39)
[2016-03-17] MEDS: VANCOMYCIN 1 GRAM (PRE-DOCKED) 250 ML IVPB SCH (21:39)
[2016-03-17] MEDS: rOPINIRole HCL 3 MG TABLET PO SCH (21:42)
[2016-03-18] MEDS: PIPERACILLIN/TAZOB 3.375 GM 50 ML IVPB SCH ×3 (01:55→17:46)
[2016-03-18] MEDS: CLINDAMYCIN HCL 150 MG CAPSULE (FP) PO SCH (05:30)
[2016-03-18] MEDS: DOCUSATE SODIUM 100 MG CAPSULE (FP) PO SCH ×3 (05:30→21:26)
[2016-03-18] MEDS: INSULIN SLIDING SCALE (NOVOLOG) 1 VIAL SQ SCH ×4 (06:52→21:30)
--- NOTE | 2016-03-18 08:32 | PN ---
Physical Exam: SUBJECTIVE: Patient seen and examined Feels better. no complaints. denies fever, chills, SOB, difficulty walking, diarrhea. OBJECTIVE: Vital Signs Period Temp Pulse Resp BP Sys/Wagner Pulse Ox Last 24 Hr 97.7 F-98.1 F 65-83 18-20 109-141/60-83 96-96 GENERAL: The patient is awake, alert, and fully oriented, in no acute distress. HEAD: Normal with no signs of trauma. EYES: extraocular movements intact, sclera anicteric, conjunctiva clear. ENT: Ears normal, nares patent, oropharynx clear without exudates, moist mucous membranes. NECK: Trachea midline, full range of motion, supple. LUNGS: Breath sounds equal, clear to auscultation bilaterally, HEART: Regular rate and rhythm, S1, S2 without murmur. ABDOMEN: Soft, nontender, nondistended, normoactive bowel sounds, EXTREMITIES: 2+ pulses, warm, well-perfused, no edema. right knee with small area of dried scab, nontender, FROM, no fluctuance or discharge. weight bearing without difficulty, no erythema. NEUROLOGICAL: Normal speech, gait normal PSYCH: Normal mood, normal affect. Laboratory Results - last 24 hr 03/17/16 03/17/16 03/18/16 17:37 21:37 05:32 POC Glucometer 176 248 153 Active Medications Generic Name Dose Route Start Last Admin Trade Name Freq PRN Reason Stop Dose Admin Acetaminophen 650 mg 03/10/16 14:43 Tylenol - PO Q4H PRN FEVER OR PAIN Clindamycin HCl 300 mg 03/13/16 19:00 03/18/16 05:30 Cleocin - PO 300 mg Q6HPO JOEL Administration Docusate Sodium 100 mg 03/10/16 22:00 03/18/16 05:30 Colace - PO 100 mg TID JOEL Administration Enoxaparin Sodium 40 mg 03/11/16 10:00 03/17/16 10:40 Lovenox - SQ 40 mg DAILY JOEL Administration Fluticasone Propionate 1 spray 03/16/16 12:15 03/17/16 10:40 Flonase - NS 1 spray DAILY JOEL Administration Piperacillin Sod/Tazobactam Sod 50 mls @ 100 mls/hr 03/11/16 12:30 03/18/16 01: 55 Zosyn 3.375gm Ivpb (Pre-Docked) IVPB 100 mls/hr Q8H-IV JOEL Administration Vancomycin HCl 250 mls @ 250 mls/hr 03/17/16 22:00 03/17/16 21:39 Vancomycin (Pre-Docked) IVPB 250 mls/hr BID JOEL Administration Insulin Aspart 1 vial 03/10/16 16:30 03/18/16 06:52 Novolog Vial Sliding Scale - SQ 2 units ACHS JOEL Administration Protocol Lisinopril 20 mg 03/11/16 10:00 03/17/16 10:40 Prinivil PO 20 mg DAILY JOEL Administration Metoprolol Succinate 100 mg 03/11/16 10:00 03/17/16 10:40 Toprol Xl - PO 100 mg DAILY JOEL Administration Ondansetron HCl 4 mg 03/10/16 14:43 Zofran Injection IVPB Q6H PRN NAUSEA Ropinirole HCl 3 mg 03/13/16 22:00 03/17/16 21:42 Requip - PO 3 mg HS JOEL Administration Rosuvastatin Calcium 40 mg 03/11/16 22:00 03/17/16 21:39 Crestor - PO 40 mg HS JOEL Administration ASSESSMENT/PLAN: 60 yr old man with DM, HLD, HTN, presented with right knee swelling admitted for right knee cellulites without osteomyelitis. #right knee cellulitis - improving - vancomycin 1gm BID --start 03/17 --vanc trough 03/18 pm 30mins before 4th dose, therapeutic 12-15 -zosyn 3.375 q8h -- start 03/11 - cleocin 300mg po q6hr - start 03/13 - stop 03/18 #DM - controlled - novolog sliding scale #HTN - controlled - toprol XL 100mg po daily - lisinopril 20mg qd #HLD - crestor 40mg po hs #constipation - docusate 100mg po tid #DVT prophylaxis - 40mg subq #continue home med ropinirole 3mg #diet: diabetic diet Visit type - Emergency Visit Emergency Visit: No - New Patient This patient is new to me today: No - Critical Care Critical Care patient: No - Discharge Referral Referred to [facility] Med P.C.: No
[2016-03-18] MEDS: ENOXAPARIN NA (PORCINE) 40 MG/0.4 ML DISP.SYRIN SQ SCH (09:48)
[2016-03-18] MEDS: FLUTICASONE PROP 0.05% 16 GM NASAL SPRAY NS SCH (09:48)
[2016-03-18] MEDS: LISINOPRIL 20 MG TABLET (FP) PO SCH (09:48)
[2016-03-18] MEDS: METOPROLOL SUCCINATE 100 MG TAB.SR.24H (FP) PO SCH (09:48)
[2016-03-18] MEDS: VANCOMYCIN 1 GRAM (PRE-DOCKED) 250 ML IVPB SCH ×3 (10:38→23:16)
--- NOTE | 2016-03-18 11:56 | PN ---
Teaching Attending Note Name of Resident: Noe Gil ATTENDING PHYSICIAN STATEMENT I saw and evaluated the patient. I reviewed the resident's note and discussed the case with the resident. I agree with the resident's findings and plan as documented. SUBJECTIVE: no fever or chills, no abd pain , no fever or chills . R knee feels better and he has been ambulating normally OBJECTIVE: NAD , CV: RRR, no MRG Lungs: CTAB ext: no edema or erythema on L leg. resolving Erythema R knee has . no effusion . Increased warmth of R knee ASSESSMENT AND PLAN: 60 y/o man with h/o DM who presented with R knee swelling and erythema , he was found to have R knee cellulitis 1- R knee cellulitis with severe sepsis: improving . - cont zosyn - cont vanco . vanco trough this evening - appreciate Dr. Yuliana Nava. - dc clindamycin 2- DM : cont SSI , resume oral agents at dc 3- HTN : cont home meds HLOC . if continue to improve , possible dc tomorrow or Friday
[2016-03-18] MEDS ORDERED: INSULIN (NOVOLOG) ASPART 100 UNITS/ML 10ML VIAL ONE (12:00)
--- NOTE | 2016-03-18 13:28 | PN ---
Progress Note, Physician History of Present Illness: rt knee cellulitis improving patient feeling much better - Current Medication List Current Medications: Active Medications Acetaminophen (Tylenol -) 650 mg PO Q4H PRN PRN Reason: FEVER OR PAIN Docusate Sodium (Colace -) 100 mg PO TID [facility] Last Admin: 03/18/16 05:30 Dose: 100 mg Fluticasone Propionate (Flonase -) 1 spray NS DAILY [facility] Last Admin: 03/18/16 09:48 Dose: 1 spray Piperacillin Sod/Tazobactam Sod (Zosyn 3.375gm Ivpb (Pre-Docked)) 50 mls @ 100 mls/hr IVPB Q8H-IV [facility] Last Admin: 03/18/16 09:49 Dose: 100 mls/hr Vancomycin HCl (Vancomycin (Pre-Docked)) 250 mls @ 250 mls/hr IVPB BID [facility] Last Admin: 03/18/16 10:38 Dose: 250 mls/hr Insulin Aspart (Novolog Vial Sliding Scale -) 1 vial SQ ACHS [facility] PRN Reason: Protocol Last Admin: 03/18/16 12:06 Dose: 4 units Lisinopril (Prinivil) 20 mg PO DAILY [facility] Last Admin: 03/18/16 09:48 Dose: 20 mg Metoprolol Succinate (Toprol Xl -) 100 mg PO DAILY [facility] Last Admin: 03/18/16 09:48 Dose: 100 mg Ondansetron HCl (Zofran Injection) 4 mg IVPB Q6H PRN PRN Reason: NAUSEA Ropinirole HCl (Requip -) 3 mg PO [facility] Last Admin: 03/17/16 21:42 Dose: 3 mg Rosuvastatin Calcium (Crestor -) 40 mg PO [facility] Last Admin: 03/17/16 21:39 Dose: 40 mg - Objective Vital Signs: Vital Signs Temperature 97.8 F 03/18/16 09:00 Pulse Rate 82 03/18/16 09:00 Respiratory Rate 18 03/18/16 09:00 Blood Pressure 127/75 03/18/16 09:00 O2 Sat by Pulse Oximetry (%) 98 03/18/16 09:00 Constitutional: Yes: No Distress, Calm Neck: Yes: Supple, Trachea Midline Cardiovascular: Yes: Regular Rate and Rhythm Respiratory: Yes: Regular, CTA Bilaterally Gastrointestinal: Yes: Normal Bowel Sounds, Soft Musculoskeletal: Yes: Joint Swelling, Other Extremities: Yes: Erythema (much less), Other Neurological: Yes: Alert, Oriented Psychiatric: Yes: Alert Labs: CBC, BMP 03/15/16 06:15 03/12/16 05:35 INR, PTT INR 1.21 (0.82-1.09) H 03/10/16 13:00 Assessment/Plan Problem List - Problem (1) Cellulitis of knee, right Code(s): L03.115 - CELLULITIS OF RIGHT LOWER LIMB (2) Sepsis Code(s): A41.9 - SEPSIS, UNSPECIFIED ORGANISM Qualifiers: Sepsis type: sepsis due to unspecified organism Qualified Code(s): A41.9 - Sepsis, unspecified organism (3) Diabetes Code(s): E11.9 - TYPE 2 DIABETES MELLITUS WITHOUT COMPLICATIONS (4) Hypertension Code(s): I10 - ESSENTIAL (PRIMARY) HYPERTENSION (5) Restless leg Code(s): G25.81 - RESTLESS LEGS SYNDROME abscess of the knee rt cellulitis still persisting plan knee improving continue current abx
[2016-03-18] MEDS: rOPINIRole HCL 3 MG TABLET PO SCH (21:26)
[2016-03-18] MEDS: ROSUVASTATIN CA 20 MG TABLET (FP) PO SCH (21:26)
[2016-03-18] MEDS ORDERED: VANCOMYCIN 1,500 MG in DEXTROSE 5%-WATER - 500 ML IVPB ONE (23:08)
[2016-03-19] MEDS: PIPERACILLIN/TAZOB 3.375 GM 50 ML IVPB SCH ×3 (02:30→17:38)
[2016-03-19] MEDS: DOCUSATE SODIUM 100 MG CAPSULE (FP) PO SCH ×3 (06:01→21:04)
[2016-03-19] MEDS: INSULIN SLIDING SCALE (NOVOLOG) 1 VIAL SQ SCH ×4 (06:45→21:04)
[2016-03-19 09:38] LABS: BASOPHIL 0.7 % (0-2.0); EOSINOPHIL 3.2 % (0-4.5); MCH 30.3 pg (25.7-33.7); MCHC 33.2 g/dl (32.0-35.9); MEAN CELL VOLUME 91.1 fl (80-96); MEAN PLT VOLUME 8.3 fl (7.5-11.1); PLATELET COUNT 168 K/MM3 (134-434); RDW 13.4 % (11.9-15.9); WHITE BLOOD COUNT 5.1 K/mm3 (4.0-10.0)
[2016-03-19] MEDS: METOPROLOL SUCCINATE 100 MG TAB.SR.24H (FP) PO SCH (10:24)
[2016-03-19] MEDS: VANCOMYCIN 1 GRAM (PRE-DOCKED) 250 ML IVPB SCH ×2 (10:24→21:04)
[2016-03-19] MEDS: FLUTICASONE PROP 0.05% 16 GM NASAL SPRAY NS SCH (10:25)
[2016-03-19] MEDS: LISINOPRIL 20 MG TABLET (FP) PO SCH (10:25)
[2016-03-19] MEDS ORDERED: INSULIN (NOVOLOG) ASPART 100 UNITS/ML 10ML VIAL ONE ×3 (12:08→20:58)
--- NOTE | 2016-03-19 14:03 | PN ---
Physical Exam: SUBJECTIVE: Patient seen and examined feels well. denies chest pain, SOB, knee pain, cough. eating/ambulating/toileting without difficulty. OBJECTIVE: Vital Signs Period Temp Pulse Resp BP Sys/Wagner Pulse Ox Last 24 Hr 97.6 F-98.5 F 72-83 18-18 117-144/62-91 98-98 GENERAL: The patient is awake, alert, and fully oriented, in no acute distress. HEAD: Normal with no signs of trauma. EYES: extraocular movements intact, sclera anicteric, conjunctiva clear. ENT: Ears normal, nares patent, oropharynx clear without exudates, moist mucous membranes. NECK: Trachea midline, full range of motion, supple. LUNGS: Breath sounds equal, clear to auscultation bilaterally, HEART: Regular rate and rhythm, S1, S2 without murmur. ABDOMEN: Soft, nontender, nondistended, normoactive bowel sounds, EXTREMITIES: 2+ pulses, warm, well-perfused, no edema. right knee with small area of dried scab, nontender, FROM, no fluctuance or discharge. weight bearing without difficulty, no erythema. NEUROLOGICAL: Normal speech, gait normal PSYCH: Normal mood, normal affect. Laboratory Results - last 24 hr 03/17/16 03/18/16 03/18/16 12:04 17:21 21:28 WBC RBC Hgb Hct MCV MCHC RDW Plt Count MPV Neutrophils % Lymphocytes % Monocytes % Eosinophils % Basophils % POC Glucometer 280 214 218 Vancomycin Trough 03/18/16 03/19/16 03/19/16 21:35 05:58 06:00 WBC 5.1 RBC 4.98 Hgb 15.1 Hct 45.4 MCV 91.1 MCHC 33.2 RDW 13.4 Plt Count 168 MPV 8.3 Neutrophils % 58.0 Lymphocytes % 25.3 D Monocytes % 12.8 H Eosinophils % 3.2 Basophils % 0.7 POC Glucometer 162 Vancomycin Trough 2.254 L* 03/19/16 11:57 WBC RBC Hgb Hct MCV MCHC RDW Plt Count MPV Neutrophils % Lymphocytes % Monocytes % Eosinophils % Basophils % POC Glucometer 211 Vancomycin Trough Active Medications Generic Name Dose Route Start Last Admin Trade Name Freq PRN Reason Stop Dose Admin Acetaminophen 650 mg 03/10/16 14:43 Tylenol - PO Q4H PRN FEVER OR PAIN Docusate Sodium 100 mg 03/10/16 22:00 03/19/16 06:01 Colace - PO 100 mg TID JOEL Administration Fluticasone Propionate 1 spray 03/16/16 12:15 03/19/16 10:25 Flonase - NS 1 spray DAILY JOEL Administration Piperacillin Sod/Tazobactam Sod 50 mls @ 100 mls/hr 03/11/16 12:30 03/19/16 09: 57 Zosyn 3.375gm Ivpb (Pre-Docked) IVPB 100 mls/hr Q8H-IV JOEL Administration Vancomycin HCl 250 mls @ 250 mls/hr 03/17/16 22:00 03/19/16 10:24 Vancomycin (Pre-Docked) IVPB 250 mls/hr BID JOEL Administration Insulin Aspart 1 vial 03/10/16 16:30 03/19/16 12:16 Novolog Vial Sliding Scale - SQ 4 units ACHS JOEL Administration Protocol Lisinopril 20 mg 03/11/16 10:00 03/19/16 10:25 Prinivil PO 20 mg DAILY JOEL Administration Metoprolol Succinate 100 mg 03/11/16 10:00 03/19/16 10:24 Toprol Xl - PO 100 mg DAILY [facility] Administration Ondansetron HCl 4 mg 03/10/16 14:43 Zofran Injection IVPB Q6H PRN NAUSEA Ropinirole HCl 3 mg 03/13/16 22:00 03/18/16 21:26 Requip - PO 3 mg HS JOEL Administration Rosuvastatin Calcium 40 mg 03/11/16 22:00 03/18/16 21:26 Crestor - PO 40 mg HS JOEL Administration ASSESSMENT/PLAN: 60 yr old man with DM, HLD, HTN, presented with right knee swelling admitted for right knee cellulites without osteomyelitis. -appreciate ID (dr. Bridges) recommedation; #right knee cellulitis - improving - vancomycin 1gm BID --start 03/17 --vanc trough 03/18 pm 2.2, therapeutic 12-15 -zosyn 3.375 q8h -- start 03/11 - cleocin 300mg po q6hr - start 03/13 - stop 03/18 #DM - controlled - novolog sliding scale #HTN - controlled - toprol XL 100mg po daily - lisinopril 20mg qd #HLD - crestor 40mg po hs #constipation - docusate 100mg po tid #DVT prophylaxis - 40mg subq #continue home med ropinirole 3mg #diet: diabetic diet #Dispo: discharge tomorrow with oral antibiotics. Visit type - Emergency Visit Emergency Visit: No - New Patient This patient is new to me today: No - Critical Care Critical Care patient: No - Discharge Referral Referred to [facility] Med P.C.: No
--- NOTE | 2016-03-19 14:26 | PN ---
Progress Note, Physician History of Present Illness: patient knee looks much better still warmth present - Current Medication List Current Medications: Active Medications Acetaminophen (Tylenol -) 650 mg PO Q4H PRN PRN Reason: FEVER OR PAIN Docusate Sodium (Colace -) 100 mg PO TID [facility] Last Admin: 03/19/16 14:19 Dose: 100 mg Fluticasone Propionate (Flonase -) 1 spray NS DAILY [facility] Last Admin: 03/19/16 10:25 Dose: 1 spray Piperacillin Sod/Tazobactam Sod (Zosyn 3.375gm Ivpb (Pre-Docked)) 50 mls @ 100 mls/hr IVPB Q8H-IV [facility] Last Admin: 03/19/16 09:57 Dose: 100 mls/hr Vancomycin HCl (Vancomycin (Pre-Docked)) 250 mls @ 250 mls/hr IVPB BID [facility] Last Admin: 03/19/16 10:24 Dose: 250 mls/hr Insulin Aspart (Novolog Vial Sliding Scale -) 1 vial SQ ACHS [facility] PRN Reason: Protocol Last Admin: 03/19/16 12:16 Dose: 4 units Lisinopril (Prinivil) 20 mg PO DAILY [facility] Last Admin: 03/19/16 10:25 Dose: 20 mg Metoprolol Succinate (Toprol Xl -) 100 mg PO DAILY [facility] Last Admin: 03/19/16 10:24 Dose: 100 mg Ondansetron HCl (Zofran Injection) 4 mg IVPB Q6H PRN PRN Reason: NAUSEA Ropinirole HCl (Requip -) 3 mg PO [facility] Last Admin: 03/18/16 21:26 Dose: 3 mg Rosuvastatin Calcium (Crestor -) 40 mg PO [facility] Last Admin: 03/18/16 21:26 Dose: 40 mg - Objective Vital Signs: Vital Signs Temperature 97.6 F 03/19/16 10:00 Pulse Rate 79 03/19/16 10:00 Respiratory Rate 18 03/19/16 10:00 Blood Pressure 134/78 03/19/16 10:00 O2 Sat by Pulse Oximetry (%) 98 03/19/16 09:00 Constitutional: Yes: No Distress, Calm Eyes: Yes: Conjunctiva Clear Cardiovascular: Yes: Regular Rate and Rhythm Respiratory: Yes: Regular, CTA Bilaterally Gastrointestinal: Yes: Normal Bowel Sounds, Soft Musculoskeletal: Yes: WNL Extremities: Yes: Other Neurological: Yes: Alert, Oriented Psychiatric: Yes: Alert Labs: CBC, BMP 03/19/16 06:00 03/12/16 05:35 INR, PTT INR 1.21 (0.82-1.09) H 03/10/16 13:00 Assessment/Plan Problem List - Problem (1) Cellulitis of knee, right Code(s): L03.115 - CELLULITIS OF RIGHT LOWER LIMB (2) Sepsis Code(s): A41.9 - SEPSIS, UNSPECIFIED ORGANISM Qualifiers: Sepsis type: sepsis due to unspecified organism Qualified Code(s): A41.9 - Sepsis, unspecified organism (3) Diabetes Code(s): E11.9 - TYPE 2 DIABETES MELLITUS WITHOUT COMPLICATIONS (4) Hypertension Code(s): I10 - ESSENTIAL (PRIMARY) HYPERTENSION (5) Restless leg Code(s): G25.81 - RESTLESS LEGS SYNDROME abscess of the knee rt cellulitis still persisting plan knee improving continue current abx patient can be discharged tomorrow after getting vanco dose on augmentin 875 mg twice a day for 7 more days and doxy 100mg twice a day for 7 days
--- NOTE | 2016-03-19 18:55 | PN ---
Teaching Attending Note Name of Resident: Noe Gil ATTENDING PHYSICIAN STATEMENT I saw and evaluated the patient. I reviewed the resident's note and discussed the case with the resident. I agree with the resident's findings and plan as documented. SUBJECTIVE: no complaints today OBJECTIVE: NAD , CV: RRR, no MRG Lungs: CTAB ext: no edema or erythema on L leg. NO Erythema R knee has. no effusion . Increased warmth of R knee ASSESSMENT AND PLAN: 60 y/o man with h/o DM who presented with R knee swelling and erythema , he was found to have R knee cellulitis 1- R knee cellulitis with severe sepsis: improving . - cont zosyn - cont vanco . - appreciate Dr. Bridges Recs. -dc tomorrow on Augmentinand doxy x 7 more days . f/u with Dr. Bridges in 1 week 2- DM : cont SSI , resume oral agents at dc 3- HTN : cont home meds HLOC .dc tomorrow after vanco dose
[2016-03-19] MEDS ORDERED: PT OWN MED DRAWER 7, Y5N ONE (20:59)
[2016-03-19] MEDS: ROSUVASTATIN CA 20 MG TABLET (FP) PO SCH (21:04)
[2016-03-19] MEDS: rOPINIRole HCL 3 MG TABLET PO SCH (21:04)
[2016-03-20] MEDS: PIPERACILLIN/TAZOB 3.375 GM 50 ML IVPB SCH ×2 (01:54→09:29)
[2016-03-20] MEDS: DOCUSATE SODIUM 100 MG CAPSULE (FP) PO SCH (05:28)
[2016-03-20] MEDS: INSULIN SLIDING SCALE (NOVOLOG) 1 VIAL SQ SCH (06:16)
--- NOTE | 2016-03-20 08:57 | PN ---
Teaching Attending Note Name of Resident: Noe Gil ATTENDING PHYSICIAN STATEMENT I saw and evaluated the patient. I reviewed the resident's note and discussed the case with the resident. I agree with the resident's findings and plan as documented. SUBJECTIVE: Patient is feeling better, no fever or chills ,no shortness of breath, no nausea or vomiting. Ready to go home. OBJECTIVE: Vital Signs Temperature 97.3 F L 03/20/16 04:54 Pulse Rate 68 03/20/16 04:54 Respiratory Rate 20 03/20/16 04:54 Blood Pressure 119/77 03/20/16 04:54 O2 Sat by Pulse Oximetry (%) 98 03/19/16 09:00 GENERAL: The patient is awake, alert, and fully oriented, in no acute distress. HEAD: Normal with no signs of trauma. EYES: PERRL, extraocular movements intact, sclera anicteric, conjunctiva clear. No ptosis. ENT: Ears normal, nares patent, oropharynx clear without exudates, moist mucous membranes. NECK: Trachea midline, full range of motion, supple. LUNGS: Breath sounds equal, clear to auscultation bilaterally, no wheezes, no crackles, no accessory muscle use. HEART: Regular rate and rhythm, S1, S2 without murmur, rub or gallop. ABDOMEN: Soft, nontender, nondistended, normoactive bowel sounds, no guarding, no hepatosplenomegaly, no masses. EXTREMITIES: 2+ pulses, warm, well-perfused, no edema, Right knee no further swelling, no edema, no erythema NEUROLOGICAL: Cranial nerves II through XII grossly intact. Normal speech, gait not observed. PSYCH: Normal mood, normal affect. SKIN: Warm, dry, normal turgor, no rashes or lesions noted CBCD WBC 5.1 K/mm3 (4.0-10.0) 03/19/16 06:00 RBC 4.98 M/mm3 (4.00-5.60) 03/19/16 06:00 Hgb 15.1 GM/dL (11.7-16.9) 03/19/16 06:00 Hct 45.4 % (35.4-49) 03/19/16 06:00 MCV 91.1 fl (80-96) 03/19/16 06:00 MCHC 33.2 g/dl (32.0-35.9) 03/19/16 06:00 RDW 13.4 % (11.9-15.9) 03/19/16 06:00 Plt Count 168 K/MM3 (134-434) 03/19/16 06:00 MPV 8.3 fl (7.5-11.1) 03/19/16 06:00 CMP Sodium 137 mmol/L (136-145) 03/12/16 05:35 Potassium 3.9 mmol/L (3.5-5.1) 03/12/16 05:35 Chloride 103 mmol/L (98-107) 03/12/16 05:35 Carbon Dioxide 25 mmol/L (21-32) 03/12/16 05:35 Anion Gap 9 (8-16) 03/12/16 05:35 BUN 18 mg/dL (7-18) 03/12/16 05:35 Creatinine 0.9 mg/dL (0.7-1.3) 03/12/16 05:35 Creat Clearance w eGFR > 60 (>60) 03/11/16 06:05 Random Glucose 130 mg/dL (74-106) H 03/12/16 05:35 Calcium 8.7 mg/dL (8.5-10.1) 03/12/16 05:35 Total Bilirubin 0.9 mg/dL (0.2-1.0) D 03/11/16 06:05 AST 12 U/L (15-37) L 03/11/16 06:05 ALT 20 U/L (12-78) 03/11/16 06:05 Alkaline Phosphatase 48 U/L (45-117) 03/11/16 06:05 Total Protein 7.4 g/dl (6.4-8.2) 03/11/16 06:05 Albumin 4.0 g/dl (3.4-5.0) 03/11/16 06:05 CARDIAC ENZYMES Creatine Kinase 165 IU/L (39-308) 03/10/16 13:00 Troponin I < 0.02 ng/ml (0.00-0.05) 03/10/16 13:00 Current Medications Generic Name Dose Route Start Last Admin Trade Name Freq PRN Reason Stop Dose Admin Acetaminophen 650 mg 03/10/16 14:43 Tylenol - PO Q4H PRN FEVER OR PAIN Docusate Sodium 100 mg 03/10/16 22:00 03/20/16 05:28 Colace - PO 100 mg TID [facility] Administration Fluticasone Propionate 1 spray 03/16/16 12:15 03/19/16 10:25 Flonase - NS 1 spray DAILY [facility] Administration Piperacillin Sod/Tazobactam Sod 50 mls @ 100 mls/hr 03/11/16 12:30 03/20/16 01: 54 Zosyn 3.375gm Ivpb (Pre-Docked) IVPB 100 mls/hr Q8H-IV [facility] Administration Vancomycin HCl 250 mls @ 250 mls/hr 03/17/16 22:00 03/19/16 21:04 Vancomycin (Pre-Docked) IVPB 250 mls/hr BID [facility] Administration Insulin Aspart 1 vial 03/10/16 16:30 03/20/16 06:16 Novolog Vial Sliding Scale - SQ Not Given ACHS [facility] Protocol Lisinopril 20 mg 03/11/16 10:00 03/19/16 10:25 Prinivil PO 20 mg DAILY [facility] Administration Metoprolol Succinate 100 mg 03/11/16 10:00 03/19/16 10:24 Toprol Xl - PO 100 mg DAILY [facility] Administration Ondansetron HCl 4 mg 03/10/16 14:43 Zofran Injection IVPB Q6H PRN NAUSEA Ropinirole HCl 3 mg 03/13/16 22:00 03/19/16 21:04 Requip - PO 3 mg HS [facility] Administration Rosuvastatin Calcium 40 mg 03/11/16 22:00 03/19/16 21:04 Crestor - PO 40 mg HS [facility] Administration Medication Instructions Recorded Canagliflozin [Invokana] 100 mg PO DAILY 03/10/16 Lisinopril [Prinivil] 20 mg PO DAILY 03/10/16 Metoprolol Succinate [Toprol Xl] 100 mg PO DAILY 03/10/16 Ropinirole HCl 3 mg PO DAILY 03/10/16 Rosuvastatin Calcium [Crestor] 40 mg PO DAILY 03/10/16 Sitagliptin Phos/Metformin HCl 1 tab PO DAILY 03/10/16 [Janumet Xr 100-1,000 mg Tablet] ASSESSMENT AND PLAN: This is a 60 year old male with a history of NIDDM, HTN, and restless leg syndrome who presents complaining of right knee pain, redness, warmth, and swelling since last night. #Acute right knee Cellulitis resolved s/p IV Vancomycin and zosyn , patient is being discharged on po Augmentin 875mg bid with x 7 days and Doxycycline 100mg po bid x 7 days. Added Bacid to antibiotic regimen. Duplex of LE no DVT. Follow with and follow with Dr. Angie Valera within a week. #Diabetes: diabetic diet continue home meds. #Hypertension :Continue home Metoprolol/Lisinopril # Restless leg Syndrome :Continue home Ropipranole
--- NOTE | 2016-03-20 09:03 | PN ---
Physical Exam: SUBJECTIVE: Patient seen and examined feels better. OBJECTIVE: Vital Signs Period Temp Pulse Resp BP Sys/Wagner Pulse Ox Last 24 Hr 97.3 F-97.9 F 65-79 18-20 104-145/66-86 GENERAL: The patient is awake, alert, and fully oriented, in no acute distress. HEAD: Normal with no signs of trauma. EYES: extraocular movements intact, sclera anicteric, conjunctiva clear. No ptosis. ENT: Ears normal, nares patent, oropharynx clear without exudates, moist mucous membranes. NECK: Trachea midline, full range of motion, supple. LUNGS: Breath sounds equal, clear to auscultation bilaterally, no wheezes, no crackles, no accessory muscle use. HEART: Regular rate and rhythm, S1, S2 without murmur, rub or gallop. ABDOMEN: Soft, nontender, nondistended, normoactive bowel sounds, no guarding, no rebound, no hepatosplenomegaly, no masses. EXTREMITIES: 2+ pulses, warm, well-perfused, no edema. right knee with small area of dried scab, nontender, FROM, no fluctuance or discharge. weight bearing without difficulty, no erythema. NEUROLOGICAL: Normal speech, gait not observed. PSYCH: Normal mood, normal affect. SKIN: Warm, dry, normal turgor, no rashes or lesions noted Laboratory Results - last 24 hr 03/17/16 03/19/16 03/19/16 12:04 06:00 11:57 WBC 5.1 RBC 4.98 Hgb 15.1 Hct 45.4 MCV 91.1 MCHC 33.2 RDW 13.4 Plt Count 168 MPV 8.3 Neutrophils % 58.0 Lymphocytes % 25.3 D Monocytes % 12.8 H Eosinophils % 3.2 Basophils % 0.7 POC Glucometer 280 211 03/19/16 03/19/16 03/20/16 17:23 20:55 05:27 WBC RBC Hgb Hct MCV MCHC RDW Plt Count MPV Neutrophils % Lymphocytes % Monocytes % Eosinophils % Basophils % POC Glucometer 180 225 147 Active Medications Generic Name Dose Route Start Last Admin Trade Name Freq PRN Reason Stop Dose Admin Acetaminophen 650 mg 03/10/16 14:43 Tylenol - PO Q4H PRN FEVER OR PAIN Docusate Sodium 100 mg 03/10/16 22:00 03/20/16 05:28 Colace - PO 100 mg TID [facility] Administration Fluticasone Propionate 1 spray 03/16/16 12:15 03/19/16 10:25 Flonase - NS 1 spray DAILY [facility] Administration Piperacillin Sod/Tazobactam Sod 50 mls @ 100 mls/hr 03/11/16 12:30 03/20/16 01: 54 Zosyn 3.375gm Ivpb (Pre-Docked) IVPB 100 mls/hr Q8H-IV [facility] Administration Vancomycin HCl 250 mls @ 250 mls/hr 03/17/16 22:00 03/19/16 21:04 Vancomycin (Pre-Docked) IVPB 250 mls/hr BID [facility] Administration Insulin Aspart 1 vial 03/10/16 16:30 03/20/16 06:16 Novolog Vial Sliding Scale - SQ Not Given ACHS [facility] Protocol Lisinopril 20 mg 03/11/16 10:00 03/19/16 10:25 Prinivil PO 20 mg DAILY [facility] Administration Metoprolol Succinate 100 mg 03/11/16 10:00 03/19/16 10:24 Toprol Xl - PO 100 mg DAILY [facility] Administration Ondansetron HCl 4 mg 03/10/16 14:43 Zofran Injection IVPB Q6H PRN NAUSEA Ropinirole HCl 3 mg 03/13/16 22:00 03/19/16 21:04 Requip - PO 3 mg HS [facility] Administration Rosuvastatin Calcium 40 mg 03/11/16 22:00 03/19/16 21:04 Crestor - PO 40 mg HS [facility] Administration ASSESSMENT/PLAN: 60 yr old man with DM, HLD, HTN, presented with right knee swelling admitted for right knee cellulites without osteomyelitis. -appreciate ID (dr. Bridges) recommedation. #right knee cellulitis - improving - vancomycin 1gm BID --start 03/17 --vanc trough 03/18 pm 2.2, therapeutic 12-15 -zosyn 3.375 q8h -- start 03/11 - cleocin 300mg po q6hr - start 03/13 - stop 03/18 #DM - controlled - novolog sliding scale #HTN - controlled - toprol XL 100mg po daily - lisinopril 20mg qd #HLD - crestor 40mg po hs #constipation - docusate 100mg po tid #DVT prophylaxis - 40mg subq #continue home med ropinirole 3mg #diet: diabetic diet #Dispo: home today on Abx Visit type - Emergency Visit Emergency Visit: No - New Patient This patient is new to me today: No - Critical Care Critical Care patient: No - Discharge Referral Referred to [facility] Med [facility].C[facility] No
[2016-03-20] MEDS ORDERED: PT OWN MED DRAWER 7, Y5N ONE (09:18)
[2016-03-20] MEDS: VANCOMYCIN 1 GRAM (PRE-DOCKED) 250 ML IVPB SCH (09:28)
[2016-03-20] MEDS: METOPROLOL SUCCINATE 100 MG TAB.SR.24H (FP) PO SCH (09:28)
[2016-03-20] MEDS: LISINOPRIL 20 MG TABLET (FP) PO SCH (09:28)
[2016-03-20] MEDS: FLUTICASONE PROP 0.05% 16 GM NASAL SPRAY NS SCH (09:33)
--- NOTE | 2016-03-20 10:17 | DS ---
Physical Exam: SUBJECTIVE: Patient seen and examined. Right knee cellulitis improved and stable for discharge. OBJECTIVE: Vital Signs Period Temp Pulse Resp BP Sys/Wagner Pulse Ox Last 24 Hr 97.3 F-97.9 F 65-78 18-20 104-145/66-86 PHYSICAL EXAM GENERAL: The patient is awake, alert, and fully oriented, in no acute distress. HEAD: Normal with no signs of trauma. EYES: extraocular movements intact, sclera anicteric, conjunctiva clear. ENT: Ears normal, nares patent, oropharynx clear without exudates, moist mucous membranes. NECK: Trachea midline, full range of motion, supple. LUNGS: Breath sounds equal, clear to auscultation bilaterally, HEART: Regular rate and rhythm, S1, S2 without murmur. ABDOMEN: Soft, nontender, nondistended, normoactive bowel sounds, EXTREMITIES: 2+ pulses, warm, well-perfused, no edema. right knee with small area of dried scab, nontender, FROM, no fluctuance or discharge. weight bearing without difficulty, no erythema. NEUROLOGICAL: Normal speech, gait normal PSYCH: Normal mood, normal affect. LABS Laboratory Results - last 24 hr 03/17/16 03/19/16 03/19/16 12:04 11:57 17:23 POC Glucometer 280 211 180 03/19/16 03/20/16 20:55 05:27 POC Glucometer 225 147 IMAGING: Lower extremity CT scan: There is significant soft tissue swelling around the right knee joint with edema and fluid mainly in the prepatellar region measuring 2 cm in thickness. Superimposed infection cannot be excluded or evaluated on this exam. There is no gross joint effusion. No acute fracture, bone destruction or periosteal elevation is identified. Correlate clinically to determine further evaluation and follow-up HOSPITAL COURSE: Date of Admission:03/10/16 - Date of Discharge: 03/20/16 60 year old male with a history of NIDDM, HTN, and restless leg syndrome who presents complaining of right knee pain, redness, warmth, and swelling since last night. He had a scab in that location for about two months, and symptoms started after he picked the scab off yesterday. He denies fevers/chills or any other systemic symptoms. He had an elevated white count 13.4 and elevated CRP 10.3. CT scan showed cellulitis. Ultrasound did not show a DVT. He was treated with zosyn 3.375 q8h iv for 9 days, cleocin 300mg po q6hr for 5 days and vancomycin was added when erythema became worse for 3 days. His white count improved as well as his erythema, drainage and swelling. Ultrasound did not show a DVT. He was discharged with augmentin 875 bid for 7 days and doxycycline 100mg bid daily for 7 days at discharge. His diabetes was controlled with novolog during admission and hypertension was controlled with his home medications. It is recommended he follow-up with his primary care physician as outpatient follow-up in one week. Minutes to complete discharge: 40 Discharge Summary Reason For Visit: SEPSIS CELLULITIS OF RIGHT LEG Current Active Problems Cellulitis of knee, right (Acute) DVT prophylaxis (Acute) Sepsis (Acute) Diabetes (Chronic) Hypertension (Chronic) Restless leg (Chronic) Condition: Stable - Instructions Diet, Activity, Other Instructions: Follow up with your pcp, Dr. Valera in [address] [place] [address]. Follow up with Dr Bridges Take antibiotics as prescribed, Augmentin twice daily with food, and Doxycyline 1 before meal or 2 hours after food on an empty stomach twice daily for 7 days. Finish all the antibiotics. Drink plenty of water. Restart your diabetes medication. Monitor your blood sugar, make a log and show it to your primary care doctor. While sleep keep pillow under your leg If swelling, redness, tenderness increases contact doctor or come to hospital. If you develop any new symptoms return to the hospital. Take Bacid, a probiotic, 1 tablet daily for one month. Referrals: Leida Bridges MD [Staff Physician] - 1 Week Disposition: HOME - Home Medications Comprehensive Discharge Medication List: Ambulatory Orders Canagliflozin [Invokana] 100 mg PO DAILY 03/10/16 Lisinopril [Prinivil] 20 mg PO DAILY 03/10/16 Metoprolol Succinate [Toprol Xl] 100 mg PO DAILY 03/10/16 Ropinirole HCl 3 mg PO DAILY 03/10/16 Rosuvastatin Calcium [Crestor] 40 mg PO DAILY 03/10/16 Sitagliptin Phos/Metformin HCl [Janumet Xr 100-1,000 mg Tablet] 1 tab PO DAILY 03/10/16 Acidoph/L.bulg/Bif.b/S.thermop [Bacid Caplet] 1 each PO DAILY #30 tablet Amox-Tr/K Cl [Augmentin - 875Mg Tablet] 1 tab PO BID #14 tablet 03/20/16 Doxycycline Hyclate 100 mg PO BID #14 capsule 03/20/16 This patient is new to me today: No Emergency Visit: No Critical Care patient: No - Discharge Referral Referred to [facility] No
[2016-03-20 10:34] VITALS: BP 130/78; PULSE 81; TEMP 98.1
== END 2016-03-20 13:19 | disposition home or self-care (01) | DRG 872 ==
LOC: JER 11:15 → JERBED 14:38 → J7W 19:04
PROVIDERS: ADMIT Internal Medicine; ATTEND Internal Medicine
DX: A41.9 Sepsis, unspecified organism (principal); L03.115 Cellulitis of right lower limb; E11.9 Type 2 diabetes mellitus without complications; I10 Essential (primary) hypertension; E78.5 Hyperlipidemia, unspecified; K59.00 Constipation, unspecified; G25.81 Restless legs syndrome
CPT/HCPCS: 36415; 73700-TC-RT; 80048; 80053; 81003; 82550; 82553; 82803; 83605; 84484; 85025; 85610; 85651; 85730; 86140; 86850; 86900; 86901; 87040; 87070; 87086; 87186; 87205; 90732; 93005; 93010; 93971-TC; 97116-GP; 97163-GP; 99283-25; G0009; G0480